=== PATIENT | male | born 1970 | race African-American/Black ===

== ENCOUNTER 2016-12-13 20:29 | Emergency (ER) | payer MEDICAID, MEDICARE ==
[2016-12-13 20:54] VITALS: BP 128/81
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
== END 2016-12-13 21:28 | disposition home or self-care (01) ==
LOC: FB.ED 20:29
DX: S23.41XA Sprain of ribs, initial encounter (principal); V49.9XXA Car occupant (driver) (passenger) injured in unspecified traffic accident, initial encounter
CPT/HCPCS: 71101-RT; 99284

== ENCOUNTER 2018-06-05 07:05 | Emergency (ER) | payer MEDICARE, MEDICAID ==
[2018-06-05 07:27] VITALS: BP 104/59
[2018-06-05] MEDS ORDERED: Ketorolac 60 MG/2 ML SDV IM ONE (07:29)
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
== END 2018-06-05 08:00 | disposition home or self-care (01) ==
LOC: FB.ED 07:05
DX: M54.5 Low back pain (principal); R20.8 Other disturbances of skin sensation; B20 Human immunodeficiency virus [HIV] disease; Z79.899 Other long term (current) drug therapy; W18.39XA Other fall on same level, initial encounter
CPT/HCPCS: 96372; 99283; J1885

== ENCOUNTER 2020-08-13 14:15 | Emergency (ER) | payer MEDICARE, MEDICAID ==
[2020-08-13] MEDS ORDERED: Azithromycin 500 MG in Sodium Chloride 0.9% 250 ML IV ONE (14:52)
[2020-08-13] MEDS ORDERED: cefTRIAXone 1 GM in Sodium Chloride 0.9% 50 ML IV ONE (14:52)
[2020-08-13] MEDS ORDERED: Sodium Chloride 0.9% 1,000 ML IV SCH (15:00)
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
[2020-08-13] MEDS ORDERED: Ketorolac 30 MG/ML SDV IVPUSH ONE (16:56)
[2020-08-13 19:09] VITALS: BP 120/74; PULSE 68
--- NOTE | 2020-08-13 21:25 | CR ---
CHEST TWO VIEWS INDICATION: Cough, chest wall pain. Negative Covid. PA and lateral views of the chest were obtained 08/13/2020 and compared with 12/13/2016. The chest is rotated to the right. The heart did not appear enlarged. Mediastinum was essentially unremarkable. A definite active infiltrate or effusion was not identified. The aorta is minimally tortuous. IMPRESSION: No acute process. MTDD
== END 2020-08-13 17:55 | disposition home or self-care (01) ==
LOC: FB.ED 14:15
DX: S23.41XA Sprain of ribs, initial encounter (principal); J40 Bronchitis, not specified as acute or chronic; Z79.899 Other long term (current) drug therapy; Z20.828 Contact with and (suspected) exposure to other viral communicable diseases; X58.XXXA Exposure to other specified factors, initial encounter
CPT/HCPCS: 36415; 71046; 80048; 85025; 86140; 96365; 96367; 96375; 99285; J0456; J0696; J1885; J7030; J7050; U0002; 99284

== ENCOUNTER 2021-01-14 09:19 | Emergency (ER) | payer MEDICARE, MEDICAID ==
--- NOTE | 2021-01-14 09:48 | EDM.PDOC ---
ED HPI GENERAL MEDICAL PROBLEM - General Stated Complaint: PAIN Time Seen by Provider: 01/14/21 09:20 Source of Information: Reports: Patient History Limitations: Reports: Language Barrier - History of Present Illness INITIAL COMMENTS - FREE TEXT/NARRATIVE: c/o R hip pain no Armenian, male roommate translated, roommate came home last night and pt was crawling on floor, said he had pain in his R hip, had fallen PMH: HIV, peripheral neuropathy, alc dependence per chart PCP: [facility] MEDS per clinic records: amitriptyline, megestrol, naproxen, emtricitabine- tenofovir, Prezista, ritonavir, gabapentin VACCINE: Moderna COVID-19 on 12-20-20 quite cachectic, has clubbing of all toes and fingers, has sinus tach, alert, conversant roommate denies alcohol - Related Data Allergies Allergy/AdvReac Type Severity Reaction Status Date / Time No Known Allergies Allergy Verified 01/14/21 09:49 Home Meds: Home Meds Darunavir Ethanolate [Prezista] 06/05/18 [History] Emtricitabine/Tenofovir [Truvada 200 MG-300 MG] 06/05/18 [History] Ritonavir [Norvir] 06/05/18 [History] Azithromycin [Zithromax] 500 mg PO DAILY #5 tab 08/13/20 [Rx] Lidocaine [Lidocaine Pain Relief] 1 each TP Q12HR #10 adh..patch 08/13/20 [Rx] Meloxicam 15 mg PO DAILY #30 tablet 08/13/20 [Rx] guaiFENesin [Mucinex] 600 mg PO BID #30 tab.er.12h 08/13/20 [Rx] Past Medical History - Past Health History Medical/Surgical History: Denies Medical/Surgical History Social & Family History - Family History Family Medical History: Unobtainable - Caffeine Use Caffeine Use: Reports: None ED ROS GENERAL - Review of Systems Review Of Systems: See Below Constitutional: Reports: No Symptoms HEENT: Reports: No Symptoms Respiratory: Reports: No Symptoms Cardiovascular: Reports: No Symptoms Endocrine: Reports: No Symptoms GI/Abdominal: Reports: No Symptoms : Reports: No Symptoms Musculoskeletal: Reports: Other (R hip pain) Skin: Reports: No Symptoms Neurological: Reports: Weakness Psychiatric: Reports: No Symptoms Hematologic/Lymphatic: Reports: No Symptoms Immunologic: Reports: No Symptoms ED EXAM, GENERAL - Physical Exam Exam: See Below Exam Limited By: Language Barrier General Appearance: Alert, Other (emaciated, c/o pain with palpation R hip but good eye contact, nontoxic) Ears: Hearing Grossly Normal Nose: Normal Inspection Throat/Mouth: Normal Voice, No Airway Compromise Head: Atraumatic, Normocephalic Neck: Normal Inspection Respiratory/Chest: No Respiratory Distress, Lungs Clear, Normal Breath Sounds Cardiovascular: Other (tachy, 2/6 NAHUM at LSB, quiet precordium) GI/Abdominal: Soft, Non-Tender, No Distention Back Exam: Normal Inspection Extremities: Other (ext x 4 atrophy, no point tender at ankles with good ROM, no swell) Neurological: Alert, CN II-XII Intact, No Motor/Sensory Deficits Psychiatric: Normal Affect, Normal Mood Skin Exam: Warm, Dry, Intact, Normal Color, No Rash Lymphatic: No Adenopathy #1 Interpretation EKG Interpretation Comments: ST 113, regular, LAD 042, UBALDO, no comparison, no definite ischemia Course - Vital Signs Last Recorded V/S: Last Vital Signs Temp 36.8 C 01/14/21 09:19 Pulse 103 H 01/14/21 09:19 Resp 22 H 01/14/21 09:19 BP 138/92 H 01/14/21 09:19 Pulse Ox 99 01/14/21 09:19 - Orders/Labs/Meds Orders: Active Orders 24 hr Category Date Time Status EKG Documentation Completion [RC] ASDIRECTED Care 01/14/21 09:25 Active CORONAVIRUS COVID-19 ADRIANE [MOLEC] Stat Lab 01/14/21 11:48 Ordered CULTURE BLOOD [BC] Urgent Lab 01/14/21 09:45 Received CULTURE BLOOD [BC] Urgent Lab 01/14/21 09:50 Received UA W/MICROSCOPIC [URIN] Stat Lab 01/14/21 09:23 Ordered Blood Culture x2 Reflex Set [OM.PC] Urgent Oth 01/14/21 09:23 Ordered EKG 12 Lead [EK] Routine Ther 01/14/21 09:23 Ordered Labs: Laboratory Tests 01/14/21 01/14/21 01/14/21 Range/Units 09:45 09:45 09:45 WBC 5.7 (3.2-10.1) x10-3/uL RBC 3.64 L (3.90-5.90) x10(6)uL Hgb 13.0 (12.9-17.7) g/dL Hct 37.5 L (38.3-50.1) % MCV 102.8 H (80.8-98.7) fL MCH 35.8 H (27.0-33.3) pg MCHC 34.8 (28.7-35.3) g/dL RDW 12.5 (12.4-15.0) % Plt Count 203 (117-477) x10(3)uL MPV 7.2 (6.7-11.0) fL Neut % (Auto) 67.2 (40.3-71.8) % Lymph % (Auto) 15.9 (15.8-45.3) % [place] % (Auto) 14.5 (5.5-15.2) % Eos % (Auto) 1.4 (0.1-6.8) % Baso % (Auto) 1.0 (0.3-3.8) % Neut # (Auto) 3.8 (1.7-6.9) x10-3/uL Lymph # (Auto) 0.9 (0.5-4.5) x10-3/uL [place] # (Auto) 0.8 (0.0-1.2) x10-3/uL Eos # (Auto) 0.1 (0.0-0.6) x10-3/uL Baso # (Auto) 0.1 (0.0-0.3) x10-3/uL Sodium 136 (135-145) mmol/L Potassium 3.8 (3.5-5.3) mmol/L Chloride 97 L (100-110) mmol/L Carbon Dioxide 22 (21-32) mmol/L BUN 5 L (7-18) mg/dL Creatinine 0.8 (0.70-1.30) mg/dL Est Cr Clr Drug Dosing 66.58 mL/min Estimated GFR (MDRD) > 60 (>60) BUN/Creatinine Ratio 6.3 L (9-20) Glucose 128 H (80-116) mg/dL Lactic Acid (0.4-2.0) mmol/L Calcium 8.7 (8.6-10.2) mg/dL Magnesium (1.8-2.5) mg/dL Total Bilirubin 0.6 (0.1-1.3) mg/dL AST 60 H D (5-25) IU/L ALT 29 (12-36) U/L Alkaline Phosphatase 168 H (56-112) IU/L Troponin I 4.9 (4.0-60.3) pg/mL C-Reactive Protein 2.0 H (0.5-0.9) mg/dL Total Protein 8.1 H (6.0-8.0) g/dL Albumin 2.7 L (3.5-5.2) g/dL Globulin 5.4 g/dL Albumin/Globulin Ratio 0.5 Ethyl Alcohol 0.05 H (<0.03) % 01/14/21 01/14/21 Range/Units 09:45 09:45 WBC (3.2-10.1) x10-3/uL RBC (3.90-5.90) x10(6)uL Hgb (12.9-17.7) g/dL Hct (38.3-50.1) % MCV (80.8-98.7) fL MCH (27.0-33.3) pg MCHC (28.7-35.3) g/dL RDW (12.4-15.0) % Plt Count (117-477) x10(3)uL MPV (6.7-11.0) fL Neut % (Auto) (40.3-71.8) % Lymph % (Auto) (15.8-45.3) % [place] % (Auto) (5.5-15.2) % Eos % (Auto) (0.1-6.8) % Baso % (Auto) (0.3-3.8) % Neut # (Auto) (1.7-6.9) x10-3/uL Lymph # (Auto) (0.5-4.5) x10-3/uL [place] # (Auto) (0.0-1.2) x10-3/uL Eos # (Auto) (0.0-0.6) x10-3/uL Baso # (Auto) (0.0-0.3) x10-3/uL Sodium (135-145) mmol/L Potassium (3.5-5.3) mmol/L Chloride (100-110) mmol/L Carbon Dioxide (21-32) mmol/L BUN (7-18) mg/dL Creatinine (0.70-1.30) mg/dL Est Cr Clr Drug Dosing mL/min Estimated GFR (MDRD) (>60) BUN/Creatinine Ratio (9-20) Glucose (80-116) mg/dL Lactic Acid 3.0 H* (0.4-2.0) mmol/L Calcium (8.6-10.2) mg/dL Magnesium 1.8 (1.8-2.5) mg/dL Total Bilirubin (0.1-1.3) mg/dL AST (5-25) IU/L ALT (12-36) U/L Alkaline Phosphatase (56-112) IU/L Troponin I (4.0-60.3) pg/mL C-Reactive Protein (0.5-0.9) mg/dL Total Protein (6.0-8.0) g/dL Albumin (3.5-5.2) g/dL Globulin g/dL Albumin/Globulin Ratio Ethyl Alcohol (<0.03) % Meds: Medications Discontinued Medications Generic Name Dose Route Start Last Admin Trade Name Freq PRN Reason Stop Dose Admin Sodium Chloride 1,000 mls @ 999 mls/hr 01/14/21 10:48 01/14/21 10:55 Normal Saline IV 01/14/21 11:48 999 mls/hr .BOLUS ONE Administration - Re-Assessments/Exams Free Text/Narrative Re-Assessment/Exam: 01/14/21 09:33 positive findings: clubbing, language barrier, h/o HIV, ST, UBALDO, cachexia, fall, R hip pain 01/14/21 11:51 pt reports he speaks Luxembourgish XR R hip with fx as per Dr Powell, appears subcapital with extension down the medial aspect CRP 2.0 and unchanged x 5m, c/w HIV, CxR 1v neg on prelim ED read, u/a pending inc'd lactic acid 3.0 c/w poor PO intake x 12h d/t fx alb 2.7, was 3.7 from 2y ago pt agrees to transfer to [place] call placed to [facility] 01/14/21 11:58 d/w Dr Adams who accepted pt in transfer Departure - Departure Time of Disposition: 11:58 Disposition: DC/Tfer to Acute Hospital 02 Condition: Fair Clinical Impression: Subcapital fracture of right hip, Cachexia, Hypoalbuminemia, Elevated lactic acid level, Macrocytosis without anemia, Elevated C-reactive protein (CRP), Elevated alkaline phosphatase level, Elevated total protein, Low BMI - Discharge Information *PRESCRIPTION DRUG MONITORING PROGRAM REVIEWED*: Not Applicable *COPY OF PRESCRIPTION DRUG MONITORING REPORT IN PATIENT LORA: Not Applicable Referrals: Benjamín [facility] MD [Primary Care Provider] - Sepsis Event Note (ED) - Focused Exam Vital Signs: Vital Signs Temp Pulse Resp BP Pulse Ox 01/14/21 09:19 36.8 C 103 H 22 H 138/92 H 99 - My Orders Last 24 Hours: My Active Orders 01/14/21 09:23 UA W/MICROSCOPIC [URIN] Stat Blood Culture x2 Reflex Set [OM.PC] Urgent EKG 12 Lead [EK] Routine 01/14/21 09:25 EKG Documentation Completion [RC] ASDIRECTED 01/14/21 09:45 CULTURE BLOOD [BC] Urgent 01/14/21 09:50 CULTURE BLOOD [BC] Urgent 01/14/21 11:48 CORONAVIRUS COVID-19 ADRIANE [MOLEC] Stat - Assessment/Plan Last 24 Hours: My Active Orders 01/14/21 09:23 UA W/MICROSCOPIC [URIN] Stat Blood Culture x2 Reflex Set [OM.PC] Urgent EKG 12 Lead [EK] Routine 01/14/21 09:25 EKG Documentation Completion [RC] ASDIRECTED 01/14/21 09:45 CULTURE BLOOD [BC] Urgent 01/14/21 09:50 CULTURE BLOOD [BC] Urgent 01/14/21 11:48 CORONAVIRUS COVID-19 ADRIANE [MOLEC] Stat
[2021-01-14 09:57] VITALS: BP 138/92; PULSE 103
[2021-01-14] MEDS ORDERED: Sodium Chloride 0.9% 1,000 ML IV ONE (10:48)
--- NOTE | 2021-01-14 11:40 | CR ---
INDICATION: Weak, fall, history of HIV. CHEST, ONE VIEW: AP portable upright view of the chest was obtained 01/14/21 and compared with 08/13/20 and 12/13/16. The heart, mediastinum, and bony thorax were unremarkable except to note a very minimal dextroconcave scoliosis at the lower thoracic spine. Overlying EKG leads are noted. An active infiltrate or effusion or contusion was not identified. IMPRESSION: No acute process. MTDD
--- NOTE | 2021-01-14 11:46 | CR ---
INDICATION: Fall, pain. RIGHT HIP WITH PELVIS: AP view of the pelvis and right hip and lateral of the right hip were obtained 01/14/21 - no comparisons. The pelvis appears to be intact with sacroiliac joints and left hip joint unremarkable. At the right hip in the proximal right femur, there appears to be an oblique fracture extending from the subcapital area laterally to approximately the portion of the mid femoral neck medially. Compared with the left hip, there is mild narrowing of the superolateral aspect of the right hip joint. However, no significant hypertrophic degenerative changes are noted at either hip joint. Degenerative changes and disc disease are noted L5-S1. IMPRESSION: 1. Apparent partially subcapital femoral neck fracture extending into the femoral neck medially on the right in good position and alignment - hairline fracture. 2. Some loss of cranial lateral joint space is suggested at the right hip joint. 3. Hypertrophic degenerative changes and disc disease noted at L5-S1. Report was called to Dr. Villa at 1130 hours 01/14/21. [facility]
[2021-01-14] MEDS ORDERED: Ondansetron 4 MG/2 ML SDV IVPUSH ONE (14:53)
[2021-01-14] MEDS ORDERED: HYDROmorphone 2 MG/ML SDV IVPUSH ONE (14:53)
== END 2021-01-14 15:10 ==
LOC: FB.ED 09:19
DX: S72.011A Unspecified intracapsular fracture of right femur, initial encounter for closed fracture (principal); R64 Cachexia; E88.09 Other disorders of plasma-protein metabolism, not elsewhere classified; R74.01 Elevation of levels of liver transaminase levels; D75.89 Other specified diseases of blood and blood-forming organs; R79.89 Other specified abnormal findings of blood chemistry; E66.9 Obesity, unspecified; Z68.1 Body mass index [BMI] 19.9 or less, adult; Z20.822 Contact with and (suspected) exposure to COVID-19; W19.XXXA Unspecified fall, initial encounter
CPT/HCPCS: 36415; 71045; 73502; 80053; 80307; 83605; 83735; 84484; 85025; 86140; 87040; 93005; 96374; 96375; 99285; J1170; J2405; J7030; U0002

== ENCOUNTER 2021-01-18 11:04 | Inpatient (IN) | payer MEDICARE, MEDICAID, OTHER ==
[2021-01-18] MEDS: Gabapentin 100 MG Cap PO SCH ×2 (16:32→21:21)
[2021-01-18] MEDS: Megestrol 40 MG Tab PO SCH ×2 (16:32→21:20)
[2021-01-18] MEDS: Calcium Carbonate 500 MG Tablet PO SCH (17:20)
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
[2021-01-18] MEDS: Naproxen 500 MG Tab PO SCH (21:20)
[2021-01-18] MEDS: Amitriptyline 25 MG Tab PO SCH (21:22)
[2021-01-18] MEDS: Acetaminophen 325 MG Tab PO PRN (21:23)
[2021-01-19] MEDS: Cholecalciferol (Vitamin D3) 25 MCG Tab PO SCH (08:26)
[2021-01-19] MEDS: Gabapentin 100 MG Cap PO SCH ×3 (08:26→20:55)
[2021-01-19] MEDS: Calcium Carbonate 500 MG Tablet PO SCH ×2 (08:26→18:33)
[2021-01-19] MEDS: Naproxen 500 MG Tab PO SCH ×2 (08:26→20:54)
[2021-01-19] MEDS: Enoxaparin 40 MG/0.4 ML Syringe SUBCUT SCH (08:26)
[2021-01-19] MEDS: Megestrol 40 MG Tab PO SCH ×4 (08:26→20:54)
[2021-01-19] MEDS: Nicotine 14 MG/24 Hr Patch TRDERM SCH (09:57)
[2021-01-19] MEDS: Amitriptyline 25 MG Tab PO SCH (20:53)
[2021-01-19] MEDS: Acetaminophen 325 MG Tab PO PRN (20:56)
[2021-01-20] MEDS: Calcium Carbonate 500 MG Tablet PO SCH ×2 (08:00→17:36)
[2021-01-20] MEDS: Nicotine 14 MG/24 Hr Patch TRDERM SCH (08:00)
[2021-01-20] MEDS: Megestrol 40 MG Tab PO SCH ×4 (08:01→20:25)
[2021-01-20] MEDS: Enoxaparin 40 MG/0.4 ML Syringe SUBCUT SCH (08:01)
[2021-01-20] MEDS: Naproxen 500 MG Tab PO SCH ×2 (08:01→20:26)
[2021-01-20] MEDS: Gabapentin 100 MG Cap PO SCH ×3 (08:01→20:26)
[2021-01-20] MEDS: Cholecalciferol (Vitamin D3) 25 MCG Tab PO SCH (08:02)
[2021-01-20] MEDS: Amitriptyline 25 MG Tab PO SCH (20:25)
[2021-01-20] MEDS: Acetaminophen 325 MG Tab PO PRN (20:27)
[2021-01-21] MEDS: Calcium Carbonate 500 MG Tablet PO SCH (08:10)
[2021-01-21] MEDS: Naproxen 500 MG Tab PO SCH (08:10)
[2021-01-21] MEDS: Cholecalciferol (Vitamin D3) 25 MCG Tab PO SCH (08:10)
[2021-01-21] MEDS: Megestrol 40 MG Tab PO SCH (08:10)
[2021-01-21] MEDS: Enoxaparin 40 MG/0.4 ML Syringe SUBCUT SCH (08:11)
[2021-01-21] MEDS: Nicotine 14 MG/24 Hr Patch TRDERM SCH (08:15)
[2021-01-21 08:25] VITALS: BP 120/69; PULSE 82
[2021-01-21] MEDS: Gabapentin 100 MG Cap PO SCH (08:31)
--- NOTE | 2021-01-21 09:16 | PCM.PN ---
- General Info Date of Service: 01/21/21 Admission Dx/Problem (Free Text): He should has no complaints. Says his hip does not hurt. - Patient Data Vitals - Most Recent: Last Vital Signs Temp 97.6 F 01/21/21 08:00 Pulse 82 01/21/21 08:00 Resp 14 01/21/21 08:00 BP 120/69 01/21/21 08:00 Pulse Ox 99 01/21/21 08:00 Weight - Most Recent: 91 lb 3.2 oz Med Orders - Current: Current Medications Acetaminophen (Acetaminophen 325 Mg Tab) 650 mg PO Q6H PRN PRN Reason: MILD/MODERATE PAIN Last Admin: 01/20/21 20:27 Dose: 650 mg Documented by: Amitriptyline HCl (Amitriptyline 25 Mg Tab) 25 mg PO BEDTIME [facility] Last Admin: 01/20/21 20:25 Dose: 25 mg Documented by: Calcium Carbonate/Glycine (Calcium Carbonate 500 Mg Tablet) 500 mg PO BIDMEALS [facility] Last Admin: 01/21/21 08:10 Dose: 500 mg Documented by: Cholecalciferol (Cholecalciferol (Vitamin D3) 25 Mcg Tab) 25 mcg PO DAILY [facility] Last Admin: 01/21/21 08:10 Dose: 25 mcg Documented by: Darunavir (Darunavir 600 Mg Tab) 600 mg PO BID [facility] Last Admin: 01/21/21 08:12 Dose: 600 mg Documented by: Emtricitabine/Tenofovir (Emtricitabine/Tenofovir Tab) 1 tab PO DAILY [facility] Last Admin: 01/21/21 08:10 Dose: 1 tab Documented by: Enoxaparin Sodium (Enoxaparin 40 Mg/0.4 Ml Syringe) 40 mg SUBCUT DAILY [facility] Stop: 02/11/21 09:01 Last Admin: 01/21/21 08:11 Dose: 40 mg Documented by: Gabapentin (Gabapentin 100 Mg Cap) 100 mg PO TID [facility] Last Admin: 01/21/21 08:31 Dose: 100 mg Documented by: Megestrol Acetate (Megestrol 40 Mg Tab) 40 mg PO QID [facility] Last Admin: 01/21/21 08:10 Dose: 40 mg Documented by: Naproxen (Naproxen 500 Mg Tab) 500 mg PO BID [facility] Last Admin: 01/21/21 08:10 Dose: 500 mg Documented by: Nicotine (Nicotine 14 Mg/24 Hr Patch) 14 mg TRDERM DAILY [facility] Last Admin: 01/21/21 08:15 Dose: 14 mg Documented by: Ritonavir (Ritonavir 100 Mg Tab) 100 mg PO BID [facility] Last Admin: 01/21/21 08:10 Dose: 100 mg Documented by: - Exam General: Alert, Oriented, Cooperative Skin: Other (Wound right hip has subcuticular sutures. Wound is well approximated without erythema or drainage.) Sepsis Event Note - Evaluation Sepsis Screening Result: No Definite Risk - Focused Exam Vital Signs: Vital Signs Temp Pulse Resp BP Pulse Ox 01/21/21 08:00 97.6 F 82 14 120/69 99 - Problem List & Annotations (1) HIV (human immunodeficiency virus infection) Status: Acute Current Visit: No (2) Subcapital fracture of right hip SNOMED Code(s): 351133047, [id number] Code(s): S72.011A - UNSP INTRACAPSULAR FRACTURE OF RIGHT FEMUR, INIT FOR CLOS FX Status: Acute Current Visit: No Annotation/Comment:: repaired - Problem List Review Problem List Initiated/Reviewed/Updated: Yes - Plan Plan:: 1. OT/PT to assess today.
--- OUTSIDE RECORDS SUMMARY | 2021-01-21 15:04 | XMSREPORT ---
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 [facility] Dietary Supplement Other (Specify in comments) ENSURE ENLIVE 01/14/21 1707 Physical Assessment: Edema: (per assessment rn at 0025 today) ? Generalized Edema None ? RLE Edema Trace GI Assessment: ? Abdominal exam: WDL per assessment rn at 0025 today. ? Stool Frequency: Pt has not had a documented BM since admission Wounds/Pressure Points: WDL (per assessment rn at 0025 today) Functional Status: PT Following OT Following Nutrition Focused Physical Exam: Completed by RD on 01/15/21: Below the Eye (fat): Slightly dark circles, somewhat hollow look (mild-moderate) Sar[place] (muscle): Slight depression (mild-moderate) Buccal (fat): Full, round/filled out cheeks (Within defined limits) Clavicle (muscle): Some protrusion of bone (mild-moderate)(moderate-severe) Shoulder (muscle)/Deltoid muscle: Acromion process slightly protrudes (mild-moderate)(moderate-severe) Triceps/Biceps (fat): Very little space between folds, fingers touch (severe) Hand/Interosseous (muscle): Slightly depressed (mild-moderate)(moderate) Thigh (muscle): Thin, minimal to no muscle definition (severe) Calf (muscle): Thin, minimal to no muscle definition (severe) Nutritionally-Relevant Medications, Vitamins and Minerals: Vitamin B12, HIV antiviral, Lovenox, Folic acid, Megace, Miralax, Senokot-S, Thiamine. Nutritionally-Relevant Biochemical Data: (01/17/2021) Sodium 133 L Creatinine 0.76 L Albumin 3.1 L Allergies/Food Intolerance: Sathya has No Known Allergies. Culturally Methodist Needs: NA INTERVENTIONS Encouraged adequate calories and optimal protein in small, frequent meals and snacks Will send snacks and supplements BID MONITORING/EVALUATION Monitor ability to consume and tolerate adequate intake to approximate estimated needs with accomodation of preferences and tolerances until intake is sustained within desirable limits Monitor I&O, weight trends, nutrition-related labs and medications, clinical status, and planof care r/t need for nutrition intervention and provide as warranted Nutrition Therapy will reassess every 1-4 days Maren Diaz RDN, LRD [facility] Pager #[phone] hysical Therapy - Herrera Amezcua, PT - 01/17/2021 8:29 AM CDT Physical Therapy Acute Orthopedic Treatment Note ASSESSMENT/RECOMMENDATIONS Pt tolerated therapy well. Some improvement with SPT transfer this date with steps taken. Still unable to coordinate use of walker even with multiple demonstrations of use. 6-Clicks Basic Mobility Score: 8 Activity Prescription with Nursing: Assist patient to chair 3 times per day for 30 to 60 minutes or for all meals. Use Ax2 Assist patient to complete exercises 10 times, 3 times per day (in sitting): air boxing, lift arms above head, straighten knees, marching. Encourage patients to do personal cares when sitting up. Use bathroom or commode rather than bedpan. Anticipated D/C Service needs: Low intensity setting Weightbearing: WBAT Ability to adhere to precautions: Good SUBJECTIVE Pt supine in bed and is agreeable to therapy Pain at rest: "Okay" OBJECTIVE Bed Mobility: Mod assist x1 Transfers: Sit to/from stand with Max assist x2 with FWW. Less assist with no use of AD, but still Max assist. Took steps with SPT and AX2 with use of therapists arms for support Gait: Stairs: Therapeutic Exercises: Performed all Hip Fx exercises x 10 with visual and tactile cues for perfomrance Other: Pt left up in chair with chair alarm on and aid in room Education: Pt POC Response to Activity: tolerated well Interdisciplinary Communication: Spoke with interdisciplinary team members regarding patient plan ofcare. PLAN Continue plan of care. 0 Today's treatment: Gait Trainin minutes Therapeutic Exercise: 15 minutes Therapeutic Activity: 44 minutes TOTAL TIMED CODES: 59 minutes TREATMENT TOTAL TIME: 59 minutes Herrera Amezcua PT, DPT [facility] Pg [phone] Addendum: 1250 finished interdisciplinary rounding for pt's fall yesterday. Additional time will be added to represents time spent in care/planning for this pt. Occupational Therapy - Yaritza Bautista, OTR/L - 01/17/2021 8:23 AM CDT Occupational Therapy Acute Care Progress Note Impression/Recommendations Recommend low intensity upon medical stability. Requires heavy assist of 2 for pivot transfer. Presents with decreased strength/endurance and poor activity tolerance. Cognitive assessment limited as [place] is not pt's primary language. OT will continue to follow per POC to maximize functional strength, activity tolerance, cognition, safety, balance, and independence with ADLs, IADLs, transfers and functional mobility needed for optimal quality of life. Objective Cognition: Alert. Cognition assessment limited by language barrier. Therapist provided FWW demonstration however, pt still unable to utilize correctly. Oxygen Level: >90% ADLs: Feeding: Drank from cup with straw/lid independently Grooming: SetupA to brush teeth while seated in chair. Psychical cues for sequencing Dressing: Not observed Toileting: Not observed Transfers: Bed: Mod A x 1 supine to EOB Chair: Max A x 2 sit <> stand with FWW, demonstration provided however, pt unable to functionally utilize FWW. Mod-Max A x 2 with B arm support on 2nd attempt Toilet: Not observed Comment: SPT bed to chair with Mod-Max A x 2 with B arm support Gait belt and non-slip footwear used for safety during OT session. Pt educated on importance of using call light and wait for nursing assistance with OOB/chair activity, patient verbalized understanding. At end of session, pt comfortable in chair and call light, phone and tray table within reach. Chair mata alarm on for safety. PT at bedside. Pain: States pain is "okay" when asked Education Education/Training provided: Role of OT, plan of care, functional transfers Learners: Patient Readiness: Acceptance Method of Training: Verbal education, demonstration Response: Verbalized/demonstrated understanding, will benefit from continued reinfocement Adaptive Equipment Recommendations Anticipate all AE needs will be met at low intensity Goals Patient/Family Stated Goal for Session: none stated Goals to be met by discharge: Patient will complete UB dressing withminimal assistance Patient will complete LB dressing withminimal assistanceand AE prn Patient will complete toileting task withminimal assistanceincluding hygiene and clothing management Patient will complete functional transfers withminimal assistancewith AE PRN (ongoing) Patient will tolerate sitting EOBto complete grooming/hygiene for >5 minutes with AE as needed (ongoing) Patient will demonstrate understanding of B UE HEP in order to increase strength, coordination, and ROM to facilitate maximized independence in ADLs Patient will further participate with cognitive assessment to increase safety with functional tasks Patient continues to progress towards goals. Charges Treatment/Minutes: Today's Evaluation/Treatment Therapeutic activity: 25 minutes Total Treatment Time: 25 minutes Treatment Session 09/11 Weekly Assessment/Plan (): Cont POC Therapist [facility] Pager Number [phone] are Planning - Madisyn Alarcon RN - 01/17/2021 2:25 AM CDT Problem: RISK FOR FALLS Goal: FALL PREVENTION BEHAVIOR Description: DEFINITION: Personal or family health care technician actions to minimize risk factors that might precipitate falls in the personal environment. 1=Never demonstrated, 2=Rarely demonstrated, 3=Sometimes demonstrated, 4=Often demonstrated, 5=Consistently demonstrated. Outcome: NOC Rating 4 Flowsheets (Taken 01/17/2021214) Plan of care reviewed with: Patient Patient specific goal for the day: Pt will utilize call light when needing to ambulate. Patient specific goal for the stay: Pt will have no more falls Achieve goal for stay: By discharge Patient Progress: Pt has not attempted to exit mata bed. Pt does not utilize call light but has call light within reach. Pt was resting in bed comfortability. VSS and CARE rounding completed. Problem: RISK FOR INJURY Goal: SAFE HEALTH CARE ENVIRONMENT Description: DEFINITION: Physical and system arrangements to minimize factors that might cause physical harm or injury in the health care facility. 1 = Not adequate, 2 = Slightly adequate, 3 = Moderately adequate, 4 = Substantially adequate, 5 = Totally adequate. Outcome: NOC Rating 4 Flowsheets (Taken 01/17/2021220) Plan of care reviewed with: Patient Patient specific goal for the day: Pt will tolerate mata bed Patient specific goal for the stay: Pt will be free from restraints. Achieve goal for stay: By discharge Patient Progress: Pt continues mata bed for safety. Pt tolerates mata bed and was laying comfortably in bed upon assessments. are Planning - Madisyn Alarcon RN - 01/17/2021 2:15 AM CDT Problem: ACUTE PAIN Goal: CLIENT SATISFACTION: PAIN MANAGEMENT Description: DEFINITION: Extent of positive perception of nursing care to relieve pain. 1=Not at all satisfied, 2=Somewhat satisfied, 3=Moderately satisfied, 4=Very satisfied, 5=Completely satisfied. Outcome: NOC Rating 4 Flowsheets (Taken 01/17/2021212) Plan of care reviewed with: Patient Patient specific goal for the day: Pt will utilize call light when in pain Patient specific goal for the stay: Pt will return to baseline with pain. Achieve goal for stay: By discharge Patient Progress: Pt stated that he has no pain. Pt was resting in bed. VSS. are Planning - Colleen Ryan RN - 01/16/2021 10:43 PM CDT Problem: ACUTE PAIN Goal: CLIENT SATISFACTION: PAIN MANAGEMENT Description: DEFINITION: Extent of positive perception of nursing care to relieve pain. 1=Not at all satisfied, 2=Somewhat satisfied, 3=Moderately satisfied, 4=Very satisfied, 5=Completely satisfied. Flowsheets (Taken 01/16/20212241) Plan of care reviewed with: Patient Patient specific goal for the day: Patient will report pain on 0-10 pain scale Patient Progress: Pt stating that his pain is much better today and doesn't feel he needs to use pain medications. Will continue to monitor. Problem: IMPAIRED PHYSICAL MOBILITY Goal: MOBILITY Description: DEFINITION: Ability to move purposefully in own environment independently with or without assistive device. 1=Severely compromised / Total assistance: Performs less than 25% of activity; 2=Substantially compromised / Maximal assistance: Performs 25-49% of activity; 3=Moderately compromised / Moderate assistance: Performs 50-74% of activity; 4=Mildly compromised / Modified independence: Needs assistive device, supervision, minimal contact,or safety is a concern; 5=Not compromised / Complete independence. Flowsheets (Taken 01/16/20212243) Plan of care reviewed with: Patient Patient specific goal for the day: Pt will call for assistance before attempting to get out of bed. Patient Progress: Pt has not been using call light apprpriately. Bed alarm set off mulitple times. Frequent rounding. Physician ordered mata bed for safety. Will continue to monitor. Problem: RISK FOR INJURY Goal: SAFE HEALTH CARE ENVIRONMENT Description: DEFINITION: Physical and system arrangements to minimize factors that might cause physical harm or injury in the health care facility. 1 = Not adequate, 2 = Slightly adequate, 3 = Moderately adequate, 4 = Substantially adequate, 5 = Totally adequate. Flowsheets (Taken 01/16/20212243) Plan of care reviewed with: Patient Patient specific goal for the day: Pt will tolerate mata bed Patient Progress: Pt understanding why maat bed was implemented for safety. Will continue to monitor. Supplemental Progress Note - Juancarlos Cavazos MD - 01/16/2021 3:40 PM CDTFace to Face Evaluation Provider Questions Description of patient's current situation/behavior and need for restraint: Pt leaving bed and having mechanical fall. Vitals signs stable? Yes Injuries from intervention? No Review of patient's current medical condition including: patient's history, ROS, labs, substance useand medications completed? Yes Review of patient's behavioral condition completed? Yes Patient's response to restraint intervention? De-escalation Continue restraint or seclusion? Discontinue if pt is no longer attempting to leave bed. linical Team - Arely Hong RN - 01/16/2021 2:01 PM CDTPatient had unwitnessed fall, due to being short staffed and bed availability we went with a mata bed in order to ensure patient safety. Order placed for restraints and mata bed was brought up right away. linical Team - Benjamín Kamara RN - 01/16/2021 1:40 PM CDTPatient Fall Documentation Situation: Fall Fall location/description: 844 in room Brief Description of Event: Patient was found by unknown staff lying on floor. It was obviousthat patient had exited bed and fell to floor. Patient side rails were up on bed, and patient had seizure pads on the bed rails as well. When patient was found, the bed alarm was found to be set in the most sensitive weight move setting, but was not alarming either in the room, or in the nursing station over the call light system. On assessment, patient had no apparent new injuries and denied any pain. Patient was assisted back to bed with multiple staff. The bed alarm was tested, and was found not to be working. Assessment/Vitals: BP: 123/86 Pain/Pain location: None Cognitive Assessment/Changes: Post op hip surgery Injuries, bruises: None apparent Other: N/A Physician Notified: Yes (If yes, answer the following questions) Physician Name: Dr. Cavazos Orders received: no Subsequent Referral(s)/Follow-up: N/A Family Member/Transportation Lead Notified: Yes Name/Relationship: Shimon Zeng Care Planning - Benjamín Kamara RN - 01/16/2021 12:30 PM CDT Problem: IMBALANCED NUTRITION: LESS THAN BODY REQUIREMENTS Goal: NUTRITIONAL STATUS: NUTRIENT INTAKE Description: DEFINITION: Nutrient intake to meet metabolic needs. 1=Not adequate, 2=Slightly adequate, 3=Moderately adequate, 4=Substantially adequate, 5=Totally adequate. Outcome: NOC Rating 3 Flowsheets (Taken 01/16/2021 1222) Initial Score: 1 Target Score: 4 Plan of care reviewed with: Patient Patient specific goal for the day: Pt to consume at least 50% of meals ordered. Patient specific goal for the stay: Pt to meet >75% of estimated nutrition needs. Achieve goal for stay: By discharge Patient Progress: Patient continuing to eat minimally even with cues to eat. Will monitor. Problem: IMPAIRED PHYSICAL MOBILITY Goal: MOBILITY Description: DEFINITION: Ability to move purposefully in own environment independently with or without assistive device. 1=Severely compromised / Total assistance: Performs less than 25% of activity; 2=Substantially compromised / Maximal assistance: Performs 25-49% of activity; 3=Moderately compromised / Moderate assistance: Performs 50-74% of activity; 4=Mildly compromised / Modified independence: Needs assistive device, supervision, minimal contact,or safety is a concern; 5=Not compromised / Complete independence. Outcome: NOC Rating 3 Flowsheets (Taken 01/16/2021 1222) Initial Score: 3 Target Score: 5 Plan of care reviewed with: Patient Patient specific goal for the day: Patient will be able to pivot to commode with assist of two Patient specific goal for the stay: Work with therapies Achieve goal for stay: By discharge Patient Progress: Post op hip fx. Patient up to chair with therapies. Patient up to commode then to bed with assist of two. Problem: RISK FOR FALLS Goal: FALL PREVENTION BEHAVIOR Description: DEFINITION: Personal or family health care technician actions to minimize risk factors that might precipitate falls in the personal environment. 1=Never demonstrated, 2=Rarely demonstrated, 3=Sometimes demonstrated, 4=Often demonstrated, 5=Consistently demonstrated. Outcome: NOC Rating 3 Flowsheets (Taken 01/16/2021 1225) Initial Score: 3 Target Score: 5 Plan of care reviewed with: Patient Patient specific goal for the day: Patient will not attempt to exit the bed or chair without stafff present Patient specific goal for the stay: No falls this hospital stay Achieve goal for stay: By discharge Patient Progress: Patient has not attempted to exit bed this shift. Patient up in chair with therapies, and was found sitting on foot rest. Assisted to commode then back to bed. Goal: MOBILITY Description: DEFINITION: Ability to move purposefully in own environment independently with or without assistive device. 1=Severely compromised, 2=Substantially compromised, 3=Moderately compromised,4=Mildly compromised, 5=Not compromised. Outcome: NOC Rating 3 Flowsheets (Taken 01/16/2021 1225) Initial Score: 3 Target Score: 5 Plan of care reviewed with: Patient Patient specific goal for the day: Patient will work with therapies. Patient specific goal for the stay: Continue to gain stregnth with therapies. Achieve goal for stay: By discharge Patient Progress: Patient working with therapies. Up to chair and to commode this shift. Case Mgmt - Alethea Mayer RN - 01/16/2021 10:26 AM CDTCASE MANAGEMENT / SOCIAL SERVICE TRANSITION PLAN - PROGRESS NOTE PLAN: Awaiting Medical Doctor Recommendations for Transition Will Continue to Follow for Support and Progression Towards Final Transition Plan BARRIERS TO TRANSITION: Medical barriers: Pain control IVF PT/OT DOES ACCEPTING FACILITY REQUIRE COVID TESTING BEFORE DISCHARGE: N/A COMMENTS / PATIENT AND FAMILY RESPONSE TO PLAN: Medicine team rounded on patient, therapies are recommending low intensity therapy post op. CM profiled it area and [facility] area. Will follow with patient on placement options. CM will continue to follow for discharge planning. IS PATIENT'S ADMISSION ASSOCIATED WITH TIA, ISCHEMIC, OR HEMORRHAGIC STROKE?: No PATIENT / SUBSTITUTE DECISION MAKER GOAL UPON TRANSITION: First Choice: Home: Family/Friend Support Outpatient Therapy: Occupational Therapy and Physical Therapy ANTICIPATED NEEDS UPON TRANSITION: [facility] Facility RESOURCE(S) PROVIDED: Placement and Transportation ANTICIPATED MODE OF TRANSPORT UPON TRANSITION: Other: TBD ANTICIPATED MODE OF TRANSPORT TO AND FROM FOLLOW UP APPOINTMENTS: As arranged by accepting facility VERIFIED CORRECT PHARMACY IS ENTERED FOR DISCHARGE: Yes - Pharmacy: [id number] [place] [address] #[phone] TRANSITION ROUNDING COMPLETED WITH THE FOLLOWING: Patient / family Inside Sales Lead Attending MD Residents Bedside RN SIGNED: Alethea Mayer RN, BSN Case Management [facility] (Office) PH: [phone] FAX: [phone] hysical Therapy - Griffin Floyd PT - 01/16/2021 9:08 AM CDT Physical Therapy Orthopedic Evaluation Date: 01/16/2021 Assessment/Recommendations: Patient presents with impaired functional mobility post surgical procedure and will benefit with continued PT. Patient may require post acute inpatient recovery at: [facility]. Family/assistant men's lacrosse coach present for PT session: None (see flowsheet) Referring Physician: Dr. Agee Diagnosis/Surgical Procedure and Date: Right hip nailing 01/15/[address] Gutierrez Significant PMH: Past Medical History: Diagnosis Date Alcohol dependence (HCC) Fracture right arm Fracture of zygomaticomaxillary complex (HCC) HIV (human immunodeficiency virus infection) (HCC) Low back pain 11/18/2012 Syphilis Tobacco use Past Surgical History: Procedure Laterality Date CATARACT EXTRACTION CATARACT W PHACO os dr. kim CATARACT W PHACO od dr. kim FACIAL FX OPEN RED Right 05/12/2013 Procedure: RIGHT ZYGOMA ORBIT & MAXILLARY OPEN REDUCTION INTERNAL FIXATION ;; Surgeon: Cyrus Galicia DDS HIP NAILING Right 01/15/2021 Procedure: RIGHT HIP FNS;; Surgeon: Michele Gutierrez MD Physician Orders: Evaluated and treat, Gait and exercise Weight Bearing Status: WBAT Precautions: Seizure precautions Status Prior to Hospitalization/Surgical Procedure: Current Living Environment: Apartment in [place] Lives: with 2 roommates Stairs to Enter Home: Elevator access Ambulation Status: independent Equipment Owned: walker Patient Goals: Unsure Current Status: Cognition: Alert and Orientated Observation: IV line ROM: Right hip AAROM's: flexion to 70 and abduction to 20 degrees Transfers: Supine to/from Sit: maximal assistance of 2 Sit to/from Stand: maximal assistance of 2 in FWW Balance: Sitting: fair Standing: Poor Gait: Patient was able to take a few small steps in FWW to stand pivot transfer bed to chair with maximal assistance of 2. Exercises: PT assisted the patient to complete 10 repetitions of Right hip post surgical exercises with moderate assistance for active exercises. No isometric exercises, patient having difficulty following directives. Pain Level: (0-10 scale) Comments: Patient reported pain in his legs with activity but did not rate on the 1-10 scale. Patient/Family Education: Reviewed precautions, role of the physical therapist, and discussed anticipated outcome goals. Family present during evaluation: None Treatment: Time Treatment Occurred: 7:58 Evaluation: X Gait: 0 minutes Exercise: 15 minutes Therapeutic Activity: 10 minutes TOTAL TIMED CODES: 25 minutes TREATMENT TOTAL TIME: 49 minutes Assessment: Patient presents with impaired functional mobility post surgical procedure and will benefit with continued PT. Patient may require post acute inpatient recovery at: [facility]. Plan: Follow daily for gait traning, therapeutic exercise, therapeutic activity, and education. Goals: By hospital discharge or within 2-3 days. Patient involved in developing/progressing goals and treatment plan. Supine to sit with minimal assist. Sit to stand with minimal assist. Ambulate 15 feet on level surfaces with minimal assist and appropriate assistive device. Achieve 65 degrees supine hip flexion and 15 degrees hip abduction. Independent or able to instruct caregiver in home exercise program. Appropriate assistive device available for ambulation. Griffin Floyd PT [facility] Pager [phone] Occupational Therapy - Yaritza Bautista, OTR/L - 01/16/2021 8:14 AM CDT Occupational Therapy Acute Care Evaluation Impression/Recommendations Recommend low intensity upon medical stability. Requires heavy assist of 2 for pivot transfer. Presents with decreased strength/endurance and poor activity tolerance. Information gathered limited as [place] is not pt's primary language. OT will continue to follow per POC to maximize functional strength, activity tolerance, cognition, safety, balance, and independence with ADLs, IADLs, transfers and functional mobility needed for optimal quality of life. Admitting Diagnosis: ICD-10-CM 1. Closed fracture of right hip, initial encounter ([facility]) S72.001A vitamin D3, cholecalciferol, 25 mcg (1000 unit) tablet calcium citrate-vitamin D (CITRACAL + VIT D) 315 mg-250 unit tablet Weight bearing status - as tolerated May shower - Leave incision open to air, may get wet if no drainage PHYSICAL THERAPY EVALUATION AND TREATMENT Pharmacist: Review anticoagulation indication and dosing for accuracy History of Present Illness: Refer to H&P for details Past Medical History: Past Medical History: Diagnosis Date Alcohol dependence (HCC) Fracture right arm Fracture of zygomaticomaxillary complex (HCC) HIV (human immunodeficiency virus infection) (HCC) Low back pain 11/18/2012 Syphilis Tobacco use Activity Level: Act as otilio Precautions: WBAT R LE, Seizure, CIWA, Alarms Infection Control: Standard Patient History Social/Home Environment: Difficulty gathering PLOF as pt's [place] is hard to understand at times. Information retrieved from CM initial note. Patient lives: lives with 2 roomates House: apartment Home Environment: Bed/Bath on main: Yes Bath Setup: Unclear Employment: not employed Prior Level of Function Independent with: dressing, bathing, medication management, cleaning, laundry and driving (daytime only) Assistance needed with: cooking Comments: Ambulates with device at baseline. Adaptive Equipment Available: No adaptive equipment needed Present for Eval: Pt, PT Objective Activities of Daily Living: Feeding: Drank from cup with straw/lid independently Grooming: Washed face with wash cloth after setupA Upper Extremity Dressing: After setupA, pt able to thread B arms into hospital gown over backside Lower Extremity Dressing: Not observed Bathing: Not observed Toileting: Total A for clean up after incontinent of urine Homemaking: Not obesrved Transfers: Bed: Max A x 2 supine to EOB Chair: Max A x 2/FWW sit <> stand, does not use FWW functionally Toilet: Not observed Tub/Shower: Not observed Comments: SPT bed to chair with Max A x 2, initiated ~2 steps Gait belt and non-slip footwear used for safety during OT session. Pt educated on importance of using call light and wait for nursing assistance with OOB/chair activity, patient verbalized understanding. At end of session, pt comfortable in chair and call light, phone and tray table within reach. Chair mata alarm on for safety. RN updated. Pain: Comment: Pt reports having pain in B LE's however, does not rate on scale Upper Extremity Function: Range of Motion: Right:within functional limits Left: within functional limits Strength: Right: limited, generalized weakness Left: limited, generalized weakness Endurance: limited Oxygen Level: >90% Coordination/Sensation: not formally assessed, WFL during observation Edema: no Dominant Hand: right Orientation: Cognition: alert, flat affect Attention: intact Following Directions: impaired, likely due to language barrier Safety Awareness: impaired Comments: Difficult to assess cognition due to language barrier. Pulling at lines occasionally. Visual/Perception: Glasses: Yes however, currently broken Comments: Denies acute changes Education Education/Training provided: Role of OT, plan of care, functional transfers Learners: Patient Readiness: Acceptance Method of Training: Verbal education, demonstration Response: Verbalized/demonstrated understanding, will benefit from continued reinforcement Adaptive Equipment Recommendations Adaptive Equipment Recommended: further assess pending discharge plan Plan to obtain adaptive equipment: To further assess. Assessment/Plan Assessment: Patient demonstrates decreased UE strength, decreased physical conditioning, decreased independence with ADL/IADL tasks, decreased independence with functional mobility and decreased safety judgement/insight into deficits Patient showing a decrease in ADL/transfer performance and will benefit from continued OT. Plan: Patient to be seen 3-5 times a week to work toward above goals Treatment plan will consist of Thursday thru Thursday sessions Goals Patient/Family Stated Goal for Session: none stated Goals to be met by discharge: Patient will complete UB dressing with minimal assistance Patient will complete LB dressing with minimal assistance and AE prn Patient will complete toileting task with minimal assistance including hygiene and clothing management Patient will complete functional transfers with minimal assistance with AE PRN Patient will tolerate sitting EOB to complete grooming/hygiene for >5 minutes with AE as needed Patient will demonstrate understanding of B UE HEP in order to increase strength, coordination, and ROM to facilitate maximized independence in ADLs Patient will further participate with cognitive assessment to increase safety with functional tasks Treatment Provided See above for treatment provided Charges Treatment/Minutes: Today's Evaluation/Treatment Evaluation Therapeutic activity: 15 minutes Total for time-based codes: 15 minutes Total treatment time: 25 minutes Evaluation Complexity PMH/Comorbidities that affect Occupational Performance: See PMH Occupational Profile/Medical and Therapy History: LOW - Brief history relating to presenting problem Patient Assessment: LOW - 1-3 performance deficits relating to physical, cognitive, psychosocial limitations/restrictions Clinical Decision Making: LOW - Low complexity, limited amount of treatment options, no assessment modification, no comorbidities Evaluation Complexity: Low Therapist [facility] Pager Number: [phone] are Planning - Patricia Bennett RN - 01/16/2021 5:18 AM CDT Problem: ACUTE PAIN Goal: CLIENT SATISFACTION: PAIN MANAGEMENT Description: DEFINITION: Extent of positive perception of nursing care to relieve pain. 1=Not at all satisfied, 2=Somewhat satisfied, 3=Moderately satisfied, 4=Very satisfied, 5=Completely satisfied. 01/16/2021517 by Patricia Bennett RN Outcome: NOC Rating 3 Flowsheets (Taken 01/16/2021517) Plan of care reviewed with: Patient Patient specific goal for the day: Patient will report pain on 0-10 pain scale Patient specific goal for the stay: Patient will have pain managed with PO meds Achieve goal for stay: By discharge Patient Progress: Adult behavioral scale used by specifications writer this shift. Patient rated 0-3. Patient frequently drowsy this shift. Patient grimaces with repo, but falls alseep quickly after. Problem: IMPAIRED PHYSICAL MOBILITY Goal: MOBILITY Description: DEFINITION: Ability to move purposefully in own environment independently with or without assistive device. 1=Severely compromised / Total assistance: Performs less than 25% of activity; 2=Substantially compromised / Maximal assistance: Performs 25-49% of activity; 3=Moderately compromised / Moderate assistance: Performs 50-74% of activity; 4=Mildly compromised / Modified independence: Needs assistive device, supervision, minimal contact,or safety is a concern; 5=Not compromised / Complete independence. Outcome: NOC Rating 3 Flowsheets (Taken 01/16/2021517) Plan of care reviewed with: Patient Patient specific goal for the day: Patient will be able to pivot to commode with assist of two Patient specific goal for the stay: Work with therapies Achieve goal for stay: By discharge Patient Progress: Patient is a post op hip fx patient. Patient has not bed out of bed this shift. Patient was incontinent therefore has not needed to get out of bed. Repo q 2 hours. Plan to work with therapies this morning. Problem: RISK FOR FALLS Goal: FALL PREVENTION BEHAVIOR Description: DEFINITION: Personal or family health care technician actions to minimize risk factors that might precipitate falls in the personal environment. 1=Never demonstrated, 2=Rarely demonstrated, 3=Sometimes demonstrated, 4=Often demonstrated, 5=Consistently demonstrated. Outcome: NOC Rating 3 Flowsheets (Taken 01/16/2021 0312) Plan of care reviewed with: Patient Patient specific goal for the day: Patient will not attempt to exit the bed without stafff present Patient specific goal for the stay: No falls this hospital stay Achieve goal for stay: By discharge Patient Progress: Patient has not attempted to exit the bed this shift. Patient AOx1. VSS. No falls.Call light within reach. Bed in lowest position. Bed alarm in place. Non-skid socks in place. repo q2 hours. linical Team - Patricia Bennett RN - 01/16/2021 5:10 AM CDTUnable to fully assess patient this shift d/t language line not having an available Dinka speaking in terpreter. Patient was frequently drowsy this shift also. are Planning - Isabel Wilson RN - 01/15/2021 10:48 PM CDT Problem: ACUTE PAIN Goal: CLIENT SATISFACTION: PAIN MANAGEMENT Description: DEFINITION: Extent of positive perception of nursing care to relieve pain. 1=Not at all satisfied, 2=Somewhat satisfied, 3=Moderately satisfied, 4=Very satisfied, 5=Completely satisfied. Flowsheets (Taken 01/15/2021 2888) Initial Score: 3 Target Score: 5 Plan of care reviewed with: Patient Patient specific goal for the day: Patient will have pain control with oral pain meds Patient specific goal for the stay: Patient will have no pain Achieve goal for stay: By discharge Patient Progress: Patient is being rated with adult behavioral his pain is moderate. He has pain meds that seem to be helping Problem: IMPAIRED PHYSICAL MOBILITY Goal: MOBILITY Description: DEFINITION: Ability to move purposefully in own environment independently with or without assistive device. 1=Severely compromised / Total assistance: Performs less than 25% of activity; 2=Substantially compromised / Maximal assistance: Performs 25-49% of activity; 3=Moderately compromised / Moderate assistance: Performs 50-74% of activity; 4=Mildly compromised / Modified independence: Needs assistive device, supervision, minimal contact,or safety is a concern; 5=Not compromised / Complete independence. Flowsheets (Taken 01/15/20212245) Initial Score: 3 Target Score: 5 Plan of care reviewed with: Patient Patient specific goal for the day: Work with therapies Patient specific goal for the stay: Work with therapies Achieve goal for stay: By discharge Patient Progress: Patient is working with therapies starting tomorrow. He has hip fx. Patient has dangled and been up to the commode pivot with 2. Problem: RISK FOR FALLS Goal: FALL PREVENTION BEHAVIOR Description: DEFINITION: Personal or family health care technician actions to minimize risk factors that might precipitate falls in the personal environment. 1=Never demonstrated, 2=Rarely demonstrated, 3=Sometimes demonstrated, 4=Often demonstrated, 5=Consistently demonstrated. Flowsheets (Taken 01/15/20212245) Initial Score: 3 Target Score: 5 Plan of care reviewed with: Patient Patient specific goal for the day: No falls Patient specific goal for the stay: No falls Achieve goal for stay: By discharge Patient Progress: Patient has had no falls. FAll prevention in place. Supplemental Progress Note - Maverick Hodges MD - 01/15/2021 3:05 PM CDT POSTOPERATIVE EXAMINATION Subjective: Patient seen in room. Pain is controlled No other complaints. Denies numbness/tingling or uncontrolled pain Denies fevers/chills, chest pains, or SOB. Objective: VSS Surgical site dressing clean, dry, and intact. Compartments soft, compressible Sensation intact entire limb +EHL/FHL/TA/GS Limb warm and well perfused, capillary refill <2sec. Assessment/Plan: - Postoperative orders placed - Ancef x24hr - WBAT - PT/OT René Hodges MD Orthopaedic Surgery PGY-2 Pager # [phone] espiratory Therapy - Sulma Morris RRT - 01/15/2021 3:03 PM CDTPatient was seen to assess need for Nicotine Replacement Therapy. Patient is a current smoker, states he smokes 10 cigarettes per day. Already has order for 14 mg nicotine patch and lozenges as needed. Patient speaks Dinka, attempted to use language line railroad dining car steward/stewardess but was unsuccessful. The call was not going through, attempted to call [employer] railroad dining car steward/stewardess 6 times. Patient speaks some [place], but I was not able to understand everything he said. Patient did say he wants to quit, encouraged him to quit. ERROL Garduno, SWITCHING OPERATOR Respiratory Care Disease Management [phone] Care Planning - Maren Diaz RD - 01/15/2021 2:42 PM CDT Problem: IMBALANCED NUTRITION: LESS THAN BODY REQUIREMENTS Goal: NUTRITIONAL STATUS: NUTRIENT INTAKE Description: DEFINITION: Nutrient intake to meet metabolic needs. 1=Not adequate, 2=Slightly adequate, 3=Moderately adequate, 4=Substantially adequate, 5=Totally adequate. Flowsheets (Taken 01/15/2021 0647) Initial Score: 1 Target Score: 4 Plan of care reviewed with: Patient Patient specific goal for the day: Pt to consume at least 50% of meals ordered. Patient specific goal for the stay: Pt to meet >75% of estimated nutrition needs. Achieve goal for stay: By discharge Patient Progress: Pt was in OR this am. Diet advanced to regular after. Pt had a meal in front of him during visit, but ate minimally. He appeared quite distracted by his phone. Pt presents with a chronically low BMI and has sites of severe fat and muscle loss. Will begin sending snacks/ONS BID to help promote intake. Pt reports liking strawberry flavor. linical Team - Benjamín Kamara RN - 01/15/2021 12:40 PM CDT DAILY SKIN CHECK BEHIND EARS- WDL ELBOWS- WDL ISCHIUM- WDL COCCYX- WDL HEELS- Dry ANY OTHER AREAS OF NOTABLE CONCERN- Legs dry skin, surgical incision right hip REMOVE ALL MEDICAL DEVICES (if medically safe to do so) AND PERFORM SKIN CHECK BENEATH THOSE AREAS THAT THE DEVICE MAKES CONTACT WITH SKIN, evaluate rotating site/move device- None Skin check completed with: Eliazar RN OR INTERVENTIONS ALREADY IN PLACE: Mepilex to coccyx INTERVENTIONS ADDED TODAY: N/A WOCN consulted? YES/NO/NA: N/A Physical Therapy - Griffin Floyd, PT - 01/15/2021 9:07 AM CDTPT will hold evaluation until after scheduled surgery for R hip fracture. PT will check on patient again 01/16/21. Griffin Floyd PT Alpha Pager [phone] ase Mgmt - Alethea Mayer RN - 01/15/2021 9:04 AM CDTCASE MANAGEMENT / SOCIAL SERVICE TRANSITION PLAN - INITIAL ASSESSMENT TRANSITION PLAN: Awaiting Medical Doctor Recommendations for Transition Will Continue to Follow for Support and Progression Towards Final Transition Plan BARRIERS TO TRANSITION: Medical barriers: Orthopedics following OR, right hip PT/OT IVF COMMENTS / PATIENT AND FAMILY RESPONSE TO PLAN: CM met with patient in room, interpretor language line was in room, Dinka is his primary language, dialect is wrong on line and patient declining it right now. Patient spoke decent [place], CM able tohave conversation with him. Patient lives in an apartment with two roommates, Bhargav and Alex. Elevator in building. Patient has PCP and does not use community services. Patient states he has a walkerat home but no other DME. He can drive from 7am-7pm but not at night due to bad eyes. His roommates do all the cooking and he helps with cleaning. Patient requesting Junaid (friend and retired switching operator) to be his emergency contact and POA while he is hospitalized. Patient states he can find a ride home at discharge CM will continue to follow and evaluate therapy notes for a discharge plan. Patient was updated on possible discharge options at discharge. ADMISSION DX: R) hip fx PATIENT STATUS: Inpatient RELEASE OF INFORMATION: Yes -- verbal for: discharge planning SOURCES OF INFORMATION (See demographics for contact information): Medical Doctor Medical Record Patient CURRENT LIVING SITUATION / LEVEL OF ASSISTANCE: Lives with Roommate COMMUNITY SERVICES: None HEALTHCARE DIRECTIVE: No POWER OF MACHINE CRATER: None States he wants Junaid is friend and Bean Viner as POA FINANCIAL CONCERNS: No Concerns PRIMARY CARE PHYSICIAN: Yes Benjamín Rincon MD : No IS PATIENT'S ADMISSION ASSOCIATED WITH TIA, ISCHEMIC, OR HEMORRHAGIC STROKE?: No LANGUAGE / COMMUNICATION BARRIERS: No PATIENT / SUBSTITUTE DECISION MAKER GOAL UPON TRANSITION: First Choice: Home: Family/Friend Support ANTICIPATED NEEDS, TRANSITION CHOICES OFFERED: Acute Rehab Home: Family/Friend Support Fpc Facility RESOURCE(S) PROVIDED: Placement and Transportation DOES PATIENT HAVE CLOTHING TO WEAR AT DISCHARGE? Yes ANTICIPATED MODE OF TRANSPORT UPON DISCHARGE: Cab / Lyft / Uber Drive self Friend car VERIFIED CORRECT PHARMACY IS ENTERED FOR DISCHARGE: Yes - Pharmacy: [id number] [place] [address] [place] [address] #[phone] [id number] CURRENT READMISSION RISK SCORE Predictive Risk Score Risk of Unplanned Readmission: 8.3 Please refer to readmission risk assessment flowsheet for further details. SIGNED: Alethea Mayer RN, BSN Case Management [facility] (Office) PH: [phone] FAX: [phone] utrition Team - Maren Diaz RD - 01/15/2021 8:59 AM CDT Nutrition Therapy Initial Assessment Referral: BPA with MST score of 2 Hospital Day: 0 days Active Problems: ? Right femoral neck fracture - non displaced ? History of alcohol use PMH: HIV cachexia, syphilis, alcohol dependence, tobacco use. Recommendations: Add Thera-M for daily micronutrient support. Encourage adequate intake of 3 meals and 2 snacks daily to help meet nutrition needs. Offer ONS with intake <50% of if pt refuses meals. Malnutrition Summary Malnutrition Assessment Date: 01/15/21 Severe protein-calorie malnutrition Malnutrition Characteristics in the Context of Chronic Illness (greater than 3 months): Severe Weight Loss: Greater than 5% in 1 month Subcutaneous Fat Loss: Moderate Muscle Loss: Severe Interventions: Monitor oral intake/advance diet as tolerated;Supplement diet with ONS (oral nutrition supplements)/nutrient dense foods;Vitamin/mineral supplementation NUTRITION ASSESSMENT Pt answered phone call and was then looking at his phone during most of visit so history obtained was somewhat limited, in addition to language barrier. Pt speaks some [place], declined using the railroad dining car steward/stewardess. Pt presents with a chronically low BMI for age. Sites of severe muscle and fat loss noted on NFPE. Will begin sending snacks/ONS BID - Pt reports liking strawberry flavor. Anthropometrics: Height: 175.3 cm (5' 9") Admission Weight: Weight: 43.5 kg (95 lb 12.8 oz) as of 01/14/2021 per bed scale Most Recent Weight: Weight: 43.5 kg (95 lb 12.8 oz) (01/14/21 1628) per bed scale Lowest Weight Since Admission: 43.5 kg Weight Change: 0 kg (0 lb) since admission BMI: Body mass index is 14.15 kg/m. IBW: 73 kg %IBW: 60% (based on admit weight) Usual Body Weight: 98-102 lbs per EMR. Unintentional Weight Loss: >5% in 1 month. Pt has a chronically low BMI. Admit weight is down 7 lbs (7%) from last month. Estimated Needs: 2184-8949 kcal/day (35-40 kcal/kg Using: Admission Weight) 65-80 gm protein (1.5-1.8 gm/kg Using: Admission Weight) Fluids per MD Intake Records: Intake Prior to Admit: Pt reported eating poorly due to a decreased appetite upon admission screening. Difficult to get a detailed diet history due to language barrier. B- Cereal, milk, tea L- Ribs, carrots S- Chicken soup, rice Snacks/Nely- ? Pt tells me that some days he does not eat. Current Intake: Pt was in OR this am. Had lunch in front of him during visit, but ate a very minimalamount. Encouraged pt to continue eating, however he seemed quite distracted by his phone. Current Diet: Nutrition (From admission, onward) Start Ordered 01/15/21 1245 ADVANCE DIET TOLERATED ONCE 01/15/21 1241 01/15/21 1245 Diet - Regular Now Question: Standard Diets Answer: Regular 01/15/21 1241 01/15/21 0900 Supplement [facility]; Other (Specify in comments) (ENSURE ENLIVE)BID BID Comments: Give supplement cold with medications twice a day. The supplement is an intervention for identified nutrition risk factors. * Do not give if patient is NPO (unless the orders specify NPO with supplement) or if medication should not be given with food. Question Answer Comment Location [facility] Dietary Supplement Other (Specify in comments) ENSURE ENLIVE 01/14/21 1707 Physical Assessment: Edema: (per assessment rn at 01/14) ? Generalized Edema None ? RLE Edema Trace GI Assessment: ? Abdominal exam: WDL per assessment rn at 01/14. ? Stool Frequency: Pt has not had a documented BM since admission Wounds/Pressure Points: WDL (per assessment rn at 01/14) Functional Status: OT Following Nutrition Focused Physical Exam: Completed by RD on 01/15/21: Below the Eye (fat): Slightly dark circles, somewhat hollow look (mild-moderate) Sarver (muscle): Slight depression (mild-moderate) Buccal (fat): Full, round/filled out cheeks (Within defined limits) Clavicle (muscle): Some protrusion of bone (mild-moderate)(moderate-severe) Shoulder (muscle)/Deltoid muscle: Acromion process slightly protrudes (mild-moderate)(moderate-severe) Triceps/Biceps (fat): Very little space between folds, fingers touch (severe) Hand/Interosseous (muscle): Slightly depressed (mild-moderate)(moderate) Thigh (muscle): Thin, minimal to no muscle definition (severe) Calf (muscle): Thin, minimal to no muscle definition (severe) Nutritionally-Relevant Medications, Vitamins and Minerals: Antibiotics, Vitamin B12, Lovenox, Folic acid, Megace 4x/day, IVF, Thiamine. Nutritionally-Relevant Biochemical Data: (01/15/2021) Sodium 133 L Creatinine 0.76 L Albumin 3.3 L Allergies/Food Intolerance: Sathya has No Known Allergies. Culturally Methodist Needs: NA INTERVENTIONS Encouraged adequate calories and optimal protein in small, frequent meals and snacks Will send snacks and supplements BID Conducted NFPE Obtained diet history Consult acknowledged MONITORING/EVALUATION Monitor ability to consume and tolerate adequate intake to approximate estimated needs with accomodation of preferences and tolerances until intake is sustained within desirable limits Monitor I&O, weight trends, nutrition-related labs and medications, clinical status, and planof care r/t need for nutrition intervention and provide as warranted Nutrition Therapy will reassess every 1-4 days Maren Diaz RDN, LRD [facility] Pager #[phone] Occupational Therapy - Yaritza Bautista OTR/Pablo - 01/15/2021 7:52 AM CDTOT order received and acknowledged. Per chart review, patient waiting for surgical repair of hip. OTwill follow up 01/16 as able/appropriate. ERIC Holm/Pablo Alpha pager [phone] are Planning - Radha Rubi RN - 01/14/2021 11:40 PM CDT Problem: ACUTE PAIN Goal: CLIENT SATISFACTION: PAIN MANAGEMENT Description: DEFINITION: Extent of positive perception of nursing care to relieve pain. 1=Not at all satisfied, 2=Somewhat satisfied, 3=Moderately satisfied, 4=Very satisfied, 5=Completely satisfied. Flowsheets (Taken 01/14/2021 1189) Initial Score: 2 Target Score: 4 Plan of care reviewed with: Patient Patient specific goal for the day: To have pain well controlled Patient specific goal for the stay: To have pain well controlled Achieve goal for stay: By discharge Patient Progress: Pt restless in bed, states he is 'in much pain' to right hip. PRN oxycodone given x1, PRN morphine given slightly before shift change. Since administration of PRNs, pt resting comfortably in bed. States he is not in pain. Will continue to assess for pain and intervene as necessary. are Planning - Kimber Mari RN - 01/14/2021 5:40 PM CDT Problem: ACUTE PAIN Goal: CLIENT SATISFACTION: PAIN MANAGEMENT Description: DEFINITION: Extent of positive perception of nursing care to relieve pain. 1=Not at all satisfied, 2=Somewhat satisfied, 3=Moderately satisfied, 4=Very satisfied, 5=Completely satisfied. Flowsheets (Taken 01/14/2021 8329) Plan of care reviewed with: Patient Patient specific goal for the day: To have pain well controlled Patient specific goal for the stay: To have pain well controlled Achieve goal for stay: By discharge Patient Progress: Patient complains of severe pain to right hip. Patient received IV pain medication at outside facility prior to transfer. Awaiting orders. linical Team - Kimber Mari RN - 01/14/2021 4:25 PM CDT Upon Admission to [facility] Room 844, skin assessment completed with Kayleigh Summers RN Upon skin assessment including pressure points findings include: Pressure points WDL Plan/Intervention: sacral mepilex applied, turn Q 2, Prevalon boots, daily skin assessment, pressurerelieving mattress documented in this encounter Plan of Treatment Date Type Specialty Care Team Description 01/21/2021 Office Visit Infectious Diseases Rafa, Yesy Crenshaw MD [address] [place] [address] [phone] 02/28/2021 Office Visit Orthopedics Michele Gutierrez MD [address] [place] [address] [phone] 02/28/2021 Office Visit Orthopedics Jolanta Gutierrez [facility] [address] [place] [address] [phone] Name Type Priority Associated Diagnoses Order S chedule COMPLETE BLOOD COUNT WITH Lab Routine Ea rly AM draw for labs DIFFERENTIAL until discontin ued starting 2020, 4 completed BASIC METABOLIC PANEL Lab Routine Early AM draw for labs until discontin ued starting 2020, 4 completed MAGNESIUM Lab Routine Early AM draw f or labs until discontin ued starting 2020, 4 completed PHOSPHORUS Lab Routine Early AM draw f or labs until discontin ued starting 2020, 4 completed HEPATIC FUNCTION PANEL Lab Routine Early AM draw for labs until discontin ued starting 2020, 3 completed Name Type Priority Associated Diagnoses Order S chedule CLINIC REFERRAL Referral Routine Asymptomatic human Ordere d: INFECTIOUS DISEASE ONE immunodeficiency v irus 01/18/2021 CHART (HIV) infection status (HCC) HIV infection, unspecified symptom status ( HCC) Weight loss, unintentional CLINIC REFERRAL Referral Routine Closed fracture of right Ordered: ORTHOPEDICS ONE CHART hip, initial encoun ter 01/18/2021 (HCC) CLINIC REFERRAL BONE Referral Routine Closed fracture of r ight Ordered: HEALTH ONE CHART hip, initial encounter 0 01/18/2021 ([facility]) documented as of this encounter Implants Implanted Type Area Feather Stitcher Device Shelf Model / Identifier Expiration Serial / Date Lot Screw Micro Emma Kls 1.8x5mm N Ea - [id number] ENT/D enta Right: DIA SANDOVAL / Implanted: Qty: 1 on 05/12/2013 by Cyrus Galicia DDS at [facility] l/Plastic ORBIT / s Plate Orb Micro Kls 10hl N Ea - [id number] ENT/Denta Right: DIA SANDOVAL / Implanted: Qty: 1 on 05/12/2013 by Cyrus Galicia DDS at [facility] l/Plastic ORBIT / s Screw Micro Max Df Kls 1.5x5mm N Ea - [id number] ENT /Denta Right: DIA SANDOVAL / Implanted: Qty: 5 on 05/12/2013 by Cyrus Galicia DDS at [facility] l/Plastic ORBIT / s Plate L Kls Lft 5hl N 70-447-70-09 Ea - [id number] ENT/Denta Right: DIA SANDOVAL [id number] / Implanted: Qty: 1 on 05/12/2013 by Cyrus Galicia DDS at [facility] l/Plastic MAXILLA / s Plate Orb Kls N [id number] Ea - [id number] ENT/Denta Right: DIA MCNAMARAIN [id number] / Implanted: Qty: 1 on 05/12/2013 by Cyrus Galicia DDS at [facility] l/Plastic ORBIT / s Screw Micro Max Df Kls 2x5mm N Ea - [id number] ENT/D enta Right: DIA SANDOVAL / Implanted: Qty: 7 on 05/12/2013 by Cyrus Galicia DDS at [facility] l/Plastic MAXILLA / s Description:4- in orbit 3- in maxilla Screw Slftp Stardrster5.0x38mm N 412.213s Ea1 - [id number] O rtho Other Right: HIP J&J DEPUY 06/06/2029 412.213S / Implanted: Qty: 1 on 01/15/2021 by Michele Gutierrez MD at [facility] SYNTHES / [id number] Screw Antirotation Pkeqhpa16sm N 04.168.490s Ea1 - [id number] 1 Ortho Other Right: HIP J&J DEPUY 02/04/2030 04.168.490S / Implanted: Qty: 1 on 01/15/2021 by Michele Gutierrez MD at [facility] SYNTHES / [id number] [place] Fem Neck Ster 90mm N 04.168.290s Ea1 - [id number] Ortho Oth er Right: HIP J&J DEPUY 05/07/2030 04.168.290S / Implanted: Qty: 1 on 01/15/2021 by Michele Gutierrez MD at [facility] SYNTHES / [id number] Plate Fem Neck Sys Ster 1hl N 04.168.000s Ea1 - [id number] O rtho Other Right: HIP J&J DEPUY 05/07/2030 04.168.000S / Implanted: Qty: 1 on 01/16/2021 by Michele Gutierrez MD at [facility] CommScope / [id number] documented as of this encounter Procedures Procedure Name Priority Date/Time Associated Comments Diagnosis LAB ONLY-COMPLETE Routine 01/18/2021 8:48 Result s for this BLOOD COUNT WITH AM CDT procedure a re in DIFFERENTIAL the results section. LAB ONLY-COMPLETE Routine 01/18/2021 8:48 Result s for this BLOOD COUNT WITH AM CDT procedure a re in DIFFERENTIAL the results section. HEPATIC FUNCTION Routine 01/18/2021 8:47 Results for this PANEL AM CDT procedure are i n the results section. PHOSPHORUS Routine 01/18/2021 8:47 Results for this AM CDT procedure are i n the results section. MAGNESIUM Routine 01/18/2021 8:47 Results for this AM CDT procedure are i n the results section. BASIC METABOLIC PANEL Routine 01/18/2021 8:47 Re sults for this AM CDT procedure are i n the results section. COVID-19 SCREEN TO STAT 01/17/2021 2:39 Resul ts for this RULE OUT INFECTIVE PM CDT procedure are in STATUS the results section. LAB ONLY-COMPLETE Routine 01/17/2021 7:08 Result s for this BLOOD COUNT WITH AM CDT procedure a re in DIFFERENTIAL the results section. HEPATIC FUNCTION Routine 01/17/2021 7:08 Results for this PANEL AM CDT procedure are i n the results section. PHOSPHORUS Routine 01/17/2021 7:08 Results for this AM CDT procedure are i n the results section. MAGNESIUM Routine 01/17/2021 7:08 Results for this AM CDT procedure are i n the results section. BASIC METABOLIC PANEL Routine 01/17/2021 7:08 Re sults for this AM CDT procedure are i n the results section. LAB ONLY-COMPLETE Routine 01/17/2021 7:08 Result s for this BLOOD COUNT WITH AM CDT procedure a re in DIFFERENTIAL the results section. LAB ONLY-COMPLETE Routine 01/16/2021 9:13 Result s for this BLOOD COUNT WITH AM CDT procedure a re in DIFFERENTIAL the results section. HEPATIC FUNCTION Routine 01/16/2021 9:13 Results for this PANEL AM CDT procedure are i n the results section. PHOSPHORUS Routine 01/16/2021 9:13 Results for this AM CDT procedure are i n the results section. MAGNESIUM Routine 01/16/2021 9:13 Results for this AM CDT procedure are i n the results section. BASIC METABOLIC PANEL Routine 01/16/2021 9:13 Re sults for this AM CDT procedure are i n the results section. LAB ONLY-COMPLETE Routine 01/16/2021 9:13 Result s for this BLOOD COUNT WITH AM CDT procedure a re in DIFFERENTIAL the results section. XRAY C-ARM Routine 01/15/2021 10:28 Results for this AM CDT procedure are i n the results section. NAILING HIP 01/15/2021 8:58 Closed right hip AM CDT fracture (HCC) LAB ONLY-COMPLETE Routine 01/15/2021 6:34 Result s for this BLOOD COUNT WITH AM CDT procedure a re in DIFFERENTIAL the results section. TYPE AND SCREEN Routine 01/15/2021 6:34 Results for this AM CDT procedure are i n the results section. PROTIME/INR Routine 01/15/2021 6:34 Results for this AM CDT procedure are i n the results section. HEPATIC FUNCTION Routine 01/15/2021 6:34 Results for this PANEL AM CDT procedure are i n the results section. PHOSPHORUS Routine 01/15/2021 6:34 Results for this AM CDT procedure are i n the results section. MAGNESIUM Routine 01/15/2021 6:34 Results for this AM CDT procedure are i n the results section. BASIC METABOLIC PANEL Routine 01/15/2021 6:34 Re sults for this AM CDT procedure are i n the results section. LAB ONLY-COMPLETE Routine 01/15/2021 6:34 Result s for this BLOOD COUNT WITH AM CDT procedure a re in DIFFERENTIAL the results section. XRAY SPINE LUMBAR 2-3 [place]ERT 01/14/2021 8:54 Re sults for this VIEWS PM CDT procedure are i n the results section. XRAY SPINE THORACIC 2 [place] 01/14/2021 8:53 Re sults for this VIEWS PM CDT procedure are i n the results section. CT PELVIS WITHOUT Routine 01/14/2021 8:44 Result s for this CONTRAST PM CDT procedure are i n the results section. COMPLETE BLOOD COUNT ALBERT 01/14/2021 6:33 Res ults for this WITHOUT DIFFERENTIAL PM CDT procedu re are in the results section. PHOSPHORUS Routine 01/14/2021 6:33 Results for this PM CDT procedure are i n the results section. MAGNESIUM ALBERT 01/14/2021 6:33 Results for this PM CDT procedure are i n the results section. BASIC METABOLIC PANEL AL[place]ERT 01/14/2021 6:33 Re sults for this PM CDT procedure are i n the results section. LAB ONLY-ABORH STAT 01/14/2021 6:30 Results f or this PM CDT procedure are i n the results section. documented in this encounter Results LAB ONLY-COMPLETE BLOOD COUNT WITH DIFFERENTIAL (01/18/2021 8:48 AM CDT) Pathologist Sig nature WBC 7.4 4.0 - 11.0 K/uL [address] RBC 3.58 (L) 4.40 - 5.[address] M/uL Hemoglobin 12.4 (L) 13.5 - 17.[address] g/dL Hematocrit 34.7 (L) 40.0 - 50.0 % [address] MCV 96.9 80.0 - 98.[address] MCH 34.6 (H) 25.5 - 34.[address] MCHC 35.7 31.5 - 36.[address] g/dL RDW-CV 10.8 (L) 11.5 - 15.5 % [address] RDW-SD 38.5 35.5 - 50.[address] Platelet Count 187 140 - 400 K/uL [address] MPV 9.6 8.5 - 12.[address] Seg Neut Absolute 4.7 1.8 - 8.0 K/uL [address] Lymphocytes Absolute 1.4 0.8 - 4.1 K/uL [place] [address] [facility] Monocytes Absolute 1.1 (H) 0.0 - 1.0 K/uL [address] Eosinophils Absolute 0.2 0.0 - 0.7 K/uL [place] [address] [facility] Basophil Absolute 0.0 0.0 - 0.2 K/uL [address] Immature Granulocyte 0.05 0.00 - 0.[address] Absolute K/uL Neutrophils Abs. 4,700 /uL [address] (Segs and Bands) Neutrophils Percent 63.8 % [address] Lymphocytes Percent 18.5 % [address] Monocytes Percent 14.7 % [address] Immature Granulocyte 0.7 % [address] Percent Eosinophils Percent 2.0 % [address] Basophil Percent 0.3 % [address] Nucleated RBC 0 /[address] Specimen Blood - Blood specimen (specimen) Performing Organization Address City/State/Zipcode Phone Number [address] [place] [address] HEPATIC FUNCTION PANEL (01/18/2021 8:47 AM CDT) Pathologist Sig nature Alkaline Phosphatase 112 30 - 150 U/L [address] AST - SGOT 40 (H) 0 - 35 U/L [address] ALT - SGPT 19 0 - 55 U/L [address] Bilirubin Total 1.5 (H) 0.2 - 1.2 mg/dL [address] Bilirubin Indirect 0.7 0.0 - 0.8 mg/dL [address] Bilirubin Direct 0.8 (H) 0.0 - 0.4 mg/dL [address] Albumin 3.0 (L) 3.5 - 5.0 g/dL [address] Protein Total 7.5 6.0 - 8.2 g/dL [address] Specimen Blood - Blood specimen (specimen) Performing Organization Address [facility] Phone Number [address] [address] PHOSPHORUS (01/18/2021 8:47 AM CDT) Pathologist Sig nature Phosphorus 2.7 2.5 - 4.5 mg/dL [address] Specimen Blood - Blood specimen (specimen) Performing Organization Address [facility] Phone Number [address] [address] MAGNESIUM (01/18/2021 8:47 AM CDT) Pathologist Sig nature Magnesium 2.0 1.8 - 2.4 mg/dL [address] Specimen Blood - Blood specimen (specimen) Performing Organization Address [facility] Phone Number [address] [address] BASIC METABOLIC PANEL (01/18/2021 8:47 AM CDT) Pathologist Sig nature Glucose 84 70 - 100 mg/dL [address] BUN 17 6 - 22 mg/dL [address] Creatinine 0.71 (L) 0.80 - 1.[address] mg/dL BUN/Creatinine Ratio 23.9 10.0 - 25.[address] Sodium 133 (L) 135 - 145 meq/L [address] Potassium 4.2 3.5 - 5.3 meq/L [address] Chloride 102 99 - 110 meq/L [address] CO2 23 20 - 29 meq/L [address] Anion Gap with K 12 6 - 20 meq/L [address] Calcium 9.4 8.5 - 10.[address] mg/dL Age [address] eGFR Non- >90 >=[address] [place] mL/min/1.73m2 eGFR >90 >=[address] mL/min/1.73m2 Specimen Blood - Blood specimen (specimen) Performing Organization Address City/State/Zipcode Phone Number [address] [place] [address] COVID-19 SCREEN TO RULE OUT INFECTIVE STATUS (01/17/2021 2:39 PM CDT) SARS CoV RNA, RT Not Detected Not Detected [facility]ORAT[facility] Specimen Respiratory - Nasopharyngeal swab (speci men) Narrative Performed At Your Covid-19 test is negative: [facility] 1)Avoiding close contact is still recommended. 2)Cover your coughs and snee zes. 3)Wash your hands often with soap and water for at least 20 seconds or use an alcohol-based billing specialist containing over 60% alcohol. Avoid touching your face. 4)Avoid sharing personal household items, including dishes, cups, utensils, towels, clothing, or bedding. These items should be cleaned thoroughly with soap and water after use. Clean all "high touch" surfaces in your home daily. 5) Monitor your symptoms. Contact your provider if you are feeling worse. If you have shortness of breath or difficulty breathing, call 911. This test was performed by polymerase chain reaction (PCR) on the [employer] instrument. This assay is for in vitro diagnostic use under FDA Emergency Use Authorization only. Optimal performance of this test requires appropriate specimen collection, storage, and transport to the test site. Detection of SARS-CoV-2 RNA may be affected by sample collection methods, patient factors (eg, presence of symptoms), and/or stage of infection. False-negative results may arise from degradation of viral RNA during shipping/storage. Results should be interpreted by a trained professional in conjunction with the pat ient s history and clinical signs and symptoms, and epidemiological risk factors. Negative (Not Detected) results do not preclude infection with the SARS-CoV-2 virus and should not be the sole basis of patient treatment/management or public health decision. Follow up testing should be performed according to the current CDC recommendations. Performing Organization Address City/State/Zipcode Phone Number JUN MILLER [address] [place] [address] [phone] LABORATORY [address] LAB ONLY-COMPLETE BLOOD COUNT WITH DIFFERENTIAL (01/17/2021 7:08 AM CDT) [facility] WBC 9.6 4.0 - 11.0 K/uL [address] RBC 3.65 (L) 4.40 - 5.[address] M/uL Hemoglobin 12.7 (L) 13.5 - 17.[address] g/dL Hematocrit 35.5 (L) 40.0 - 50.0 % [address] MCV 97.3 80.0 - 98.[address] MCH 34.8 (H) 25.5 - 34.[address] MCHC 35.8 31.5 - 36.[address] g/dL RDW-CV 10.8 (L) 11.5 - 15.5 % [address] RDW-SD 38.8 35.5 - 50.[address] Platelet Count 163 140 - 400 K/uL [address] MPV 9.2 8.5 - 12.[address] Seg Neut Absolute 7.4 1.8 - 8.0 K/uL [address] Lymphocytes Absolute 1.0 0.8 - 4.1 K/uL [place] [address] [facility] Monocytes Absolute 1.1 (H) 0.0 - 1.0 K/uL [address] Eosinophils Absolute 0.0 0.0 - 0.7 K/uL [place] [address] [facility] Basophil Absolute 0.0 0.0 - 0.2 K/uL [address] Immature Granulocyte 0.07 (H) 0.00 - 0.06 [place] [address] CLIN[facility] Absolute K/uL Neutrophils Abs. 7,400 /uL [address] (Segs and Bands) Neutrophils Percent 77.5 % [address] Lymphocytes Percent 9.9 % [address] Monocytes Percent 11.5 % [address] Immature Granulocyte 0.7 % [address] Percent Eosinophils Percent 0.3 % [address] Basophil Percent 0.1 % [address] Nucleated RBC 0 /[address] Specimen Blood - Blood specimen (specimen) Performing Organization Address [facility] Phone Number [address] [address] HEPATIC FUNCTION PANEL (01/17/2021 7:08 AM CDT) Pathologist Sig nature Alkaline Phosphatase 116 30 - 150 U/L [address] AST - SGOT 46 (H) 0 - 35 U/L [address] ALT - SGPT 17 0 - 55 U/L [address] Bilirubin Total 1.5 (H) 0.2 - 1.2 mg/dL [address] Bilirubin Indirect 0.5 0.0 - 0.8 mg/dL [address] Bilirubin Direct 1.0 (H) 0.0 - 0.4 mg/dL [address] Albumin 3.1 (L) 3.5 - 5.0 g/dL [address] Protein Total 7.5 6.0 - 8.2 g/dL [address] Specimen Blood - Blood specimen (specimen) Performing Organization Address [facility] Phone Number [address] [address] PHOSPHORUS (01/17/2021 7:08 AM CDT) Pathologist Sig nature Phosphorus 2.9 2.5 - 4.5 mg/dL [address] Specimen Blood - Blood specimen (specimen) Performing Organization Address [facility] Phone Number [address] [address] MAGNESIUM (01/17/2021 7:08 AM CDT) Pathologist Sig nature Magnesium 2.1 1.8 - 2.4 mg/dL [address] Specimen Blood - Blood specimen (specimen) Performing Organization Address [facility] Phone Number [address] [address] BASIC METABOLIC PANEL (01/17/2021 7:08 AM CDT) Pathologist Sig [facility] Glucose 91 70 - 100 mg/dL [address] BUN 15 6 - 22 mg/dL [address] Creatinine 0.76 (L) 0.80 - 1.[address] mg/dL BUN/Creatinine Ratio 19.7 10.0 - 25.[address] Sodium 133 (L) 135 - 145 meq/L [address] Potassium 4.3 3.5 - 5.3 meq/L [address] Chloride 101 99 - 110 meq/L [address] CO2 24 20 - 29 meq/L [address] Anion Gap with K 12 6 - 20 meq/L [address] Calcium 9.2 8.5 - 10.[address] mg/dL Age [address] eGFR Non- >90 >=[address] [facility] [place] mL/min/1.73m2 eGFR >90 >=[address] mL/min/1.73m2 Specimen Blood - Blood specimen (specimen) Performing Organization Address City/State/Zipcode Phone Number [address] [place] [address] LAB ONLY-COMPLETE BLOOD COUNT WITH DIFFERENTIAL (01/16/2021 9:13 AM CDT) Pathologist Sig [facility] WBC 11.1 (H) 4.0 - 11.0 K/uL [address] RBC 3.66 (L) 4.40 - 5.[address] M/uL Hemoglobin 12.7 (L) 13.5 - 17.[address] g/dL Hematocrit 35.7 (L) 40.0 - 50.0 % [address] MCV 97.5 80.0 - 98.[address] MCH 34.7 (H) 25.5 - 34.[address] MCHC 35.6 31.5 - 36.[address] g/dL RDW-CV 10.7 (L) 11.5 - 15.5 % [address] RDW-SD 38.5 35.5 - 50.[address] Platelet Count 156 140 - 400 K/uL [address] MPV 9.5 8.5 - 12.[address] Seg Neut Absolute 9.1 (H) 1.8 - 8.0 K/uL [address] Lymphocytes Absolute 0.9 0.8 - 4.1 K/uL [place] [address] [facility] Monocytes Absolute 1.0 0.0 - 1.0 K/uL [address] Eosinophils Absolute 0.0 0.0 - 0.7 K/uL [place] [address] [facility] Basophil Absolute 0.0 0.0 - 0.2 K/uL [address] Immature Granulocyte 0.07 (H) 0.00 - 0.[address] Absolute K/uL Neutrophils Abs. 9,100 /uL [address] (Segs and Bands) Neutrophils Percent 82.1 % [address] Lymphocytes Percent 7.8 % [address] Monocytes Percent 9.3 % [address] Immature Granulocyte 0.6 % [address] Percent Eosinophils Percent 0.0 % [address] Basophil Percent 0.2 % [address] Nucleated RBC 0 /[address] Specimen Blood - Blood specimen (specimen) Performing Organization Address City/State/Zipcode Phone Number [address] [place], [place] [address] [place] [address] HEPATIC FUNCTION PANEL (01/16/2021 9:13 AM CDT) Pathologist Sig nature Alkaline Phosphatase 132 30 - 150 U/L [address] AST - SGOT 47 (H) 0 - 35 U/L [address] ALT - SGPT 20 0 - 55 U/L [address] Bilirubin Total 1.1 0.2 - 1.2 mg/dL [address] Bilirubin Indirect 0.3 0.0 - 0.8 mg/dL [address] Bilirubin Direct 0.8 (H) 0.0 - 0.4 mg/dL [address] Albumin 3.2 (L) 3.5 - 5.0 g/dL [address] Protein Total 7.8 6.0 - 8.2 g/dL [address] Specimen Blood - Blood specimen (specimen) Performing Organization Address [facility] Phone Number [address] [place] [phone] PHOSPHORUS (01/16/2021 9:13 AM CDT) Pathologist Sig nature Phosphorus 3.1 2.5 - 4.5 mg/dL [address] Specimen Blood - Blood specimen (specimen) Performing Organization Address [facility] Phone Number [address] [place] [address] MAGNESIUM (01/16/2021 9:13 AM CDT) Pathologist Sig nature Magnesium 2.0 1.8 - 2.4 mg/dL [address] Specimen Blood - Blood specimen (specimen) Performing Organization Address [facility] Phone Number [address] [address] BASIC METABOLIC PANEL (01/16/2021 9:13 AM CDT) Pathologist Sig nature Glucose 103 (H) 70 - 100 mg/dL [address] BUN 10 6 - 22 mg/dL [address] Creatinine 0.78 (L) 0.80 - 1.[address] mg/dL BUN/Creatinine Ratio 12.8 10.0 - 25.[address] Sodium 133 (L) 135 - 145 meq/L [address] Potassium 4.0 3.5 - 5.3 meq/L [address] Chloride 98 (L) 99 - 110 meq/L [address] CO2 26 20 - 29 meq/L [address] Anion Gap with K 13 6 - 20 meq/L [address] Calcium 9.2 8.5 - 10.[address] mg/dL Age [address] eGFR Non- >90 >=[address] [facility] [place] mL/min/1.73m2 eGFR >90 >=[address] mL/min/1.73m2 Specimen Blood - Blood specimen (specimen) Performing Organization Address City/[facility]/Zipcode Phone Number [address] [place] [facility] [place] [address] XRAY C-ARM greater than one hour (01/15/2021 10:28 AM CDT) Specimen Narrative Performed At Fluoroscopic image(s) submitted. Imaging [facility] RADI[facility] assistance provided by Radiology. Performing Organization Address [facility] Phone Number [facility] RAD[facility] [address] [place] [address] LAB ONLY-COMPLETE BLOOD COUNT WITH DIFFERENTIAL (01/15/2021 6:34 AM CDT) Pathologist Sig nature WBC 7.5 4.0 - 11.0 K/uL [address] RBC 3.75 (L) 4.40 - 5.[address] M/uL Hemoglobin 13.1 (L) 13.5 - 17.[address] g/dL Hematocrit 37.1 (L) 40.0 - 50.0 % [address] MCV 98.9 (H) 80.0 - 98.[address] MCH 34.9 (H) 25.5 - 34.[address] MCHC 35.3 31.5 - 36.[address] g/dL RDW-CV 11.2 (L) 11.5 - 15.5 % [address] RDW-SD 40.5 35.5 - 50.[address] Platelet Count 151 140 - 400 K/uL [address] MPV 9.2 8.5 - 12.[address] Seg Neut Absolute 5.0 1.8 - 8.0 K/uL [address] Lymphocytes Absolute 1.2 0.8 - 4.1 K/uL [place] [address] [facility] Monocytes Absolute 1.0 0.0 - 1.0 K/uL [address] Eosinophils Absolute 0.3 0.0 - 0.7 K/uL [place] [address] [facility] Basophil Absolute 0.1 0.0 - 0.2 K/uL [address] Immature Granulocyte 0.04 0.00 - 0.[address] Absolute K/uL Neutrophils Abs. 5,000 /uL [address] (Segs and Bands) Neutrophils Percent 66.3 % [address] Lymphocytes Percent 16.2 % [address] Monocytes Percent 13.0 % [address] Immature Granulocyte 0.5 % [address] Percent Eosinophils Percent 3.3 % [address] Basophil Percent 0.7 % [address] Nucleated RBC 0 /[address] Specimen Blood - Blood specimen (specimen) Performing Organization Address [facility] Phone Number [address] [place] [phone] TYPE AND SCREEN (01/15/2021 6:34 AM CDT) Pathologist Sig nature ABO Type B [address] BLOOD BANK Rh Type Positive [address] Comment: BLOOD BANK Allogenic Red Cells Available 8CD 01/15/21 Antibody Screen Negative [address] BLOOD BANK Expiration Date 01/18/2021 23:[address] BLOOD BANK Specimen Blood - Blood specimen (specimen) Performing Organization Address [facility] Number [address] BLOOD BANK [address] [place] [address] PROTIME/INR (01/15/2021 6:34 AM CDT) Pathologist Sig nature Protime 12.8 12.0 - 14.[address] INR 1.0 (L) 2.0 - 3.[address] Specimen Blood - Blood specimen (specimen) Narrative Performed At Normal INR reference range (patients not on oral antic oagulants) [address] 0.9-1.1. INR Standard Intensity = (2.0 - 3.0) INR Higher Intensity = (2.5 - 3.5) Performing Organization Address [facility] Phone Number [address] [place] [address], [place] [address] PHOSPHORUS (01/15/2021 6:34 AM CDT) Pathologist Sig nature Phosphorus 2.8 2.5 - 4.5 mg/dL [facility] Specimen Blood - Blood specimen (specimen) Performing Organization Address [facility] Phone Number [place] [phone] [facility] [address] [place] [id number] MAGNESIUM (01/15/2021 6:34 AM CDT) Pathologist Sig [facility] Magnesium 2.1 1.8 - 2.4 mg/dL [address] Specimen Blood - Blood specimen (specimen) Performing Organization Address [facility] Phone Number [address] [address] [place] [id number] HEPATIC FUNCTION PANEL (01/15/2021 6:34 AM CDT) Pathologist Sig [facility] Alkaline Phosphatase 157 (H) 30 - 150 U/L [address] AST - SGOT 44 (H) 0 - 35 U/L [address] ALT - SGPT 21 0 - 55 U/L [address] Bilirubin Total 1.2 0.2 - 1.2 mg/dL [address] Bilirubin Indirect 0.4 0.0 - 0.8 mg/dL [address] Bilirubin Direct 0.8 (H) 0.0 - 0.4 mg/dL [address] Albumin 3.3 (L) 3.5 - 5.0 g/dL [address] Protein Total 7.9 6.0 - 8.2 g/dL [address] Specimen Blood - Blood specimen (specimen) Performing Organization Address [facility] Phone Number [address] [address] BASIC METABOLIC PANEL (01/15/2021 6:34 AM CDT) Pathologist Sig nature Glucose 93 70 - 100 mg/dL [address] BUN 6 6 - 22 mg/dL [address] Creatinine 0.76 (L) 0.80 - 1.[address] mg/dL BUN/Creatinine Ratio 7.9 (L) 10.0 - 25.0 [place] [address] [facility] Sodium 133 (L) 135 - 145 meq/L [address] Potassium 3.8 3.5 - 5.3 meq/L [place] [address] [facility] Chloride 99 99 - 110 meq/L [place] [address] [facility] CO2 24 20 - 29 meq/L [address] Anion Gap with K 14 6 - 20 meq/L [address] Calcium 8.5 8.5 - 10.[address] mg/dL Age [address] eGFR Non- >90 >=[address] [facility] [place] mL/min/1.73m2 eGFR >90 >=[address] mL/min/1.73m2 Specimen Blood - Blood specimen (specimen) Performing Organization Address City/State/Zipcode Phone Number [address] [place] [address] XRAY SPINE LUMBAR 2 OR 3V - AP AND LAT SUPINE (01/14/2021 8:54 PM CDT) Specimen Narrative Performed At [facility] Patient Name: SATHYA SANDS Date of : 1970 Procedure: XRAY SPINE LUMBAR 2-3 VIEWS Date of Service: 01/14/2021 EXAM: XRAY SPINE LUMBAR 2-3 VIEWS INDICATION: Male, 50 years year old patient, Pain afte r fall, diffuse pain in T/L spine COMPARISON(S): 03/19/2017 TECHNIQUE: 2 view(s) of the lumbar spi ne were obtained. FINDINGS: There is straightening of normal lumbar lordosis. Th ere is no substantial scoliosis. There is a normal alignment of the vertebrae. No compression deformity. There is emphysematous spond ylosis and loss of disc height most pronounced at L5-S1. The soft tissue structures are unremarka ble. IMPRESSION: No compression deformity. Finalized by: Nuno Vinson MD on 01/15/2021 12:59 AM CDT Patient/Procedure Information: [facility] MRN/NADJA: [id number] Order Number: [id number] Accession Number: [id number] Ordering Provider: MAVERICK HODGES Authorizing Provider: YOLIS OCHOA Procedure Note Interface, Radiantres - 01/15/2021 1:01 AM CDT Patient Name: SATHYA SANDS Date of : 1970 Procedure: XRAY SPINE LUMBAR 2-3 VIEWS Date of Service: 01/14/2021 EXAM: XRAY SPINE LUMBAR 2-3 VIEWS INDICATION: Male, 50 years year old ephraim ent, Pain after fall, diffuse pain in T/L spine COMPARISON(S): 03/19/2017 TECHNIQUE: 2 view(s) of the lumbar spin e were obtained. FINDINGS: There is straightening of normal lumbar lordosis. There is no substantial scoliosis. There is a normal alignment of the vertebrae. No compression deformity. There is emphy sematous spondylosis and loss of disc height most pronounced at L5-S1. The soft tissue structures are unremarka ble. IMPRESSION: No compression deformity. Finalized by: Nuno Vinson MD on 01/15/2021 12:59 AM CDT Patient/Procedure Information: [facility] MRN/NADJA: [id number] Order Number: [id number] Accession Number: [id number] Ordering Provider: MAVERICK HODGES Authorizing Provider: YOLIS OCHOA Performing Organization Address City/State/Zipcode Phone Number [id number] XRAY SPINE THORACIC 2 VIEWS (01/14/2021 8:53 PM CDT) Specimen Narrative Performed At [facility] Patient Name: SATHYA SANDS Date of : 1970 Procedure: XRAY SPINE THORACIC 2 VIEWS Date of Service: 01/14/2021 EXAM: XRAY SPINE THORACIC 2 VIEWS INDICATION: Male, 50 years year old patient, Pain afte r fall, diffuse pain over T/L spine COMPARISON(S): None Available TECHNIQUE: 3 view(s) of the thoracic spi ne were obtained. FINDINGS: Normal kyphosis of the thoracic spine. There is no sub stantial scoliosis. Normal alignment of posterior elements. No compression deformity. No suspicious endplate erosi on. No significant loss of disc height. There is no demonstrated soft tissue abn ormality. IMPRESSION: No olga lidia compression deformity. If pain is severe, con therapy tech CT scan or MRI. Finalized by: Nuno Vinson MD on 01/15/2021 1:00 AM CDT Patient/Procedure Information: [facility] MRN/NADJA: [id number] Order Number: [id number] Accession Number: [id number] Ordering Provider: MAVERICK HODGES Authorizing Provider: YOLIS OCHOA Procedure Note Interface, Radiantres - 01/15/2021 1:02 AM CDT Patient Name: SATHYA SANDSERMA Date of : 1970 Procedure: XRAY SPINE THORACIC 2 VIEWS Date of Service: 01/14/2021 EXAM: XRAY SPINE THORACIC 2 VIEWS INDICATION: Male, 50 years year old ephraim ent, Pain after fall, diffuse pain over T/L spine COMPARISON(S): None Available TECHNIQUE: 3 view(s) of the thoracic spi ne were obtained. FINDINGS: Normal kyphosis of the thoracic spine. T here is no substantial scoliosis. Normal alignment of posterior elements. No compression deformity. No suspicious endplate erosion. No significant loss of disc height. There is no demonstrated soft tissue abn ormality. IMPRESSION: No olga lidia compression deformity. If pain is severe, consider CT scan or MRI. Finalized by: Nuno Vinson MD on 01/15/2021 1:00 AM CDT Patient/Procedure Information: [facility] MRN/NADJA: [id number] Order Number: [id number] Accession Number: [id number] Ordering Provider: MAVERICK HODGES Authorizing Provider: YOLIS OCHOA Performing Organization Address City/State/Zipcode Phone Number [id number] CT PELVIS WITHOUT CONTRAST (01/14/2021 8:44 PM CDT) Specimen Narrative Performed At [facility] Patient Name: SATHYA SANDS Date of : 1970 Procedure: CT PELVIS WITHOUT CONTRAST Date of Service: 01/14/2021 EXAM: CT PELVIS WITHOUT CONTRAST INDICATION: Male, 50 years year old patient, Pelvic fracture, Pelvic trauma, Right femoral neck fracture COMPARISON(S): X-ray hip with pelvis dated 01/14/2021. CT abdomen pelv is dated 05/03/2019. TECHNIQUE: Transaxial images were obtained through t he pelvis without intravenous contrast administration. Oral contrast was not given. Sagittal and coronal images were recon structed. FINDINGS: Bowel: Visualized portions of large and small bowel are unremarkable. Vessels: Bilateral iliac arteries and ve ins are unremarkable. Lymph nodes: No enlarged lymph nodes april ntified. Bladder: The urinary bladder is somewhat distended theresa suring 11.1 cm in height. Pelvic viscera: Normal. No suspicious ma ss. Abdominal/pelvic wall: Normal abdominal wall. Osseous: Slightly comminuted fracture of the right fem oral neck extends from the subcapital region to just above the greater t rochanter. No prominent displacement. Mild impaction. No other fract ure. No prominent arthritic change at either hip joint. Sacral iliac clarisa nts are unremarkable. Bony structures are diffusely osteopenic . Prominent degenerative disc height loss at L5-S1 with endplate i rregularity and moderate spondylosis. Moderate right hip joint effusion with f at fluid level. IMPRESSION PELVIS: 1. Acute fracture of the right femoral neck as described. 2. Moderate effusion at the right hip with fat fluid level. 3. Mildly distended urinary bladder. Finalized by: Sher Peralta on 01/15/2021 12:01 AM CDT Patient/Procedure Information: [facility] MRN/NADJA: [id number] Order Number: [id number] Accession Number: [id number] Ordering Provider: JUANCARLOS CAVAZOS Authorizing Provider: NICOLE AGEE Procedure Note Interface, Radiantres - 01/15/2021 12:04 AM CDT Patient Name: SATHYA SANDS Date of : 1970 Procedure: CT PELVIS WITHOUT CONTRAST Date of Service: 01/14/2021 EXAM: CT PELVIS WITHOUT CONTRAST INDICATION: Male, 50 years year old pat ient, Pelvic fracture, Pelvic trauma, Right femoral neck fracture COMPARISON(S): X-ray hip with pelvis dated 01/14/2021. C T abdomen pelvis dated 05/03/2019. TECHNIQUE: Transaxial images were obtai melanie through the pelvis without intravenous contrast administration. Oral contrast was not given. Sagittal and coronal images were reconstructed. FINDINGS: Bowel: Visualized portions of large and small bowel are unremarkable. Vessels: Bilateral iliac arteries and ve ins are unremarkable. Lymph nodes: No enlarged lymph nodes april ntified. Bladder: The urinary bladder is somewhat distended measuring 11.1 cm in height. Pelvic viscera: Normal. No suspicious ma ss. Abdominal/pelvic wall: Normal abdominal wall. Osseous: Slightly comminuted fracture of the right femoral neck extends from the subcapital region to just above the greater trochanter. No prominent displacement. Mild impaction. No other fracture. No prominent arthritic change at either hip joint. Sa cral iliac joints are unremarkable. Bony structures are diffusely osteopenic. Prominent degenerative disc height loss at L5-S1 with endplate irregularity and moderate spondylosis. Moderate right hip joint effusion with f at fluid level. IMPRESSION PELVIS: 1. Acute fracture of the right femoral neck as described. 2. Moderate effusion at the right hip w ith fat fluid level. 3. Mildly distended urinary bladder. Finalized by: Sher Peralta on 01/15/2021 12:01 AM CDT Patient/Procedure Information: [facility] MRN/NADJA: [id number] Order Number: [id number] Accession Number: [id number] Ordering Provider: JUANCARLOS CAVAZOS Authorizing Provider: NICOLE AGEE Performing Organization Address [facility] Phone Number [id number] PHOSPHORUS (01/14/2021 6:33 PM CDT) Pathologist Sig nature Phosphorus 4.0 2.5 - 4.5 mg/dL [address] Specimen Blood - Blood specimen (specimen) Performing Organization Address [facility] Phone Number [address] [place] [phone] MAGNESIUM (01/14/2021 6:33 PM CDT) Pathologist Sig nature Magnesium 1.7 (L) 1.8 - 2.4 mg/dL [address] Specimen Blood - Blood specimen (specimen) Performing Organization Address [facility] Phone Number [address] [address] BASIC METABOLIC PANEL (01/14/2021 6:33 PM CDT) Pathologist Sig nature Glucose 111 (H) 70 - 100 mg/dL [address] BUN 7 6 - 22 mg/dL [address] Creatinine 0.77 (L) 0.80 - 1.[address] mg/dL BUN/Creatinine Ratio 9.1 (L) 10.0 - 25.[address] Sodium 136 135 - 145 meq/L [place] [address] [facility] Potassium 4.1 3.5 - 5.3 meq/L [address] Chloride 101 99 - 110 meq/L [place] [address] [facility] CO2 27 20 - 29 meq/L [address] Anion Gap with K 12 6 - 20 meq/L [address] Calcium 9.0 8.5 - 10.5 [place] [address] [facility] mg/dL Age [address] eGFR Non- >90 >=[address] [facility] [place] mL/min/1.73m2 eGFR >90 >=[address] mL/min/1.73m2 Specimen Blood - Blood specimen (specimen) Performing Organization Address [facility] Phone Number [address] [place] [phone] COMPLETE BLOOD COUNT WITHOUT DIFFERENTIAL (01/14/2021 6:33 PM CDT) Pathologist Sig nature WBC 5.8 4.0 - 11.0 K/uL [address] RBC 3.73 (L) 4.40 - 5.80 M/uL [address] Hemoglobin 13.1 (L) 13.5 - 17.5 g/dL [address] Hematocrit 37.1 (L) 40.0 - 50.0 % [address] MCV 99.5 (H) 80.0 - 98.[address] MCH 35.1 (H) 25.5 - 34.[address] MCHC 35.3 31.5 - 36.5 g/dL [address] RDW-CV 11.4 (L) 11.5 - 15.5 % [address] RDW-SD 41.7 35.5 - 50.[address] Platelet Count 160 140 - 400 K/uL [address] MPV 9.0 8.5 - 12.[address] Specimen Blood - Blood specimen (specimen) Performing Organization Address [facility] Phone Number [address] [place] [address], [place] [address] LAB ONLY-ABORH (01/14/2021 6:30 PM CDT) Pathologist Sig nature ABO Type B [address] BLOOD BA NK Rh Type Positive [address] BLOOD BA NK Specimen Blood - Blood specimen (specimen) Performing Organization Address [facility] Phone Number [address] BLOOD BANK [address] [place] [address], [place] [address] documented in this encounter Visit Diagnoses Diagnosis Closed fracture of right hip, initial en counter (HCC) - Primary Asymptomatic human immunodeficiency viru s (HIV) infection status (HCC) Asymptomatic human immunodeficiency viru s (HIV) infection status HIV infection, unspecified symptom statu s (HCC) Weight loss, unintentional Loss of weight Femur fracture (HCC) Closed fracture of unspecified part of f emur documented in this encounter Discharge Diagnoses Not on filedocumented in this encounter Administered Medications Medication Order MAR Action Action Date Dose Rate Site acetaminophen (TYLENOL) tablet Given 01/18/2021 5:43 AM CDT 650 mg 650 mg 650 mg, Oral, Every six hours, First dose (after last modification) on Aishwarya 01/17/21 at 1300, Until Discontinued, PACU - Continue Post-Op, Adult patients: Total dose of acetaminophen from all acetaminophen containing products should not exceed 4 grams (4000 mg) per day. Pediatric Patients 0 - 3 months: Maximum of 60 mg/kg/24 hours of acetaminophen. Pediatric Patients older than 3 months: Maximum of 75 mg/kg/24 hours of acetaminophen (Never exceeding 4 grams/day). , Given 01/18/2021 1:30 AM CDT 650 mg Given 01/17/2021 5:44 PM CDT 650 mg bisacodyl (DULCOLAX) suppository 10 mg 10 mg, Rectal, One time a day prn, Starting Thu at 1817, Until Discontinued, constipation, Use SECOND for constipatio n. If patient cannot take oral medications, use first for constipation., calcium carbonate (TUMS) chewable tablet 1,000 mg 1,000 mg, Oral, Every four hours prn, Starting 01/05 at 1817, Until Discontinued, other (Specify), acid reflux, Use FIRST for acid reflux. If ineffective after 60 minutes, may proceed to next cisneros ce option or, if no other options, contact provider., cyanocobalamin (vitamin B-12) (Vitamin Given 01/18/2021 9:18 AM CDT 250 mcg B-12) tablet 250 mcg 250 mcg, Oral, Daily, First dose on Thu01/15/21 at 0900, Until Discontinued, If alert and NOT vomiting, Given 01/17/2021 8:40 AM CDT 250 mcg Given 01/16/2021 7:54 AM CDT 250 mcg cyanocobalamin (VITAMIN B-12) injection solution 250 mcg 250 mcg, Intramuscular, Daily, First dose on Thu at 0900, Until Discontinued, 1 mL, If NOT alert and/or vomiting: Refi ll if injection needed, darunavir (PREZISTA) tablet 600 mg Given 01/18/2021 9:19 AM CDT 600 mg 600 mg, Oral, Two times a day, First dose on Thu01/15/21 at 2100, Until Discontinued, Changed from 800mg daily to 600mg bid while in hospital after discussion with ID., Given 01/17/2021 10:34 PM CDT 600 mg Given 01/17/2021 8:41 AM CDT 600 mg docusate sodium (THEREVAC-SB MINI;ENEMEE Z MINI) 283 MG enema 1 enema 1 enema, Rectal, One time a day prn, Starting 01/14 at 1817, Until Discontinued, constipation, Use THIRD for constipation - if no BM 8 hours after dulcolax suppository. If patient cannot take oral medi cations, use second for constipation., emtricitabine-tenofovir (TRUVADA) 200-300 Given 2020 9:19 AM CDT 1 tablet mg tablet 1 tablet 1 tablet, Oral, Daily, First dose on Thu01/15/21 at 1420, Until Discontinued, Changed from Descovy daily while in the hospital per discussion with ID, Given 01/17/2021 8:41 AM CDT 1 tablet Given 01/16/2021 9:12 AM CDT 1 tablet enoxaparin (LOVENOX) subcutaneous injection Given 01/18/2021 9:19 AM CDT 40 mg solution 40 mg 40 mg, Subcutaneous, Daily, 28 doses, First dose on Thu01/16/21 at 0900, Last dose on Thu02/12/21 at 0900, To avoid the loss of drug when using the 30 mg and 40 mg prefilled syringes, do not expel the air bubble from the syringe before the injection. For ADULT patients: Administration should be alternated between the left and right anterolateral and left and right posterolateral abdominal wall. The whole length of the needle should be introduced into a skin fold held between the thumb and forefinger; the skin fold should be held throughout the injection. To minimize bruising, do not rub the injection site after completion of the injection. For PEDIATRIC patients: Administration should be alternated between appropriate sites for patient age/weight (infants/small children = upper thigh; older children/adolescents = left and right anterolateral and left and right posterolateral abdominal wall). During administration to infants/smaller children sometimes the whole length of the needle is not "introduced" during the injection. Administer injection into a skin fold held between the thumb and forefinger; the skin fold should be held throughout the injection. To minimize bruising, do not rub the injection site after completion of the injection., Given 01/17/2021 8:41 AM CDT 40 mg Given 01/16/2021 7:53 AM CDT 40 mg famotidine (PEPCID) tablet 20 mg 20 mg, Oral, Two times a day prn, Starti ng Thu01/14/21 at 1817, Until Discontinued, other (Specify), acid reflux, Use SECOND for acid reflux if inadequate response to calcium carbonate (Tums) after 60 minute s. If inadequate response to famotidine (Pepcid) in 60 minutes, may proceed to n ext choice option or, if no other options, contact provider., folic acid injection solution 1 mg 1 mg, IV, Daily, First dose on Thu at 0900, Until Discontinued, 0.2 mL, If NOT alert and/or vomiting: Refill if injection needed, folic acid tablet 1 mg Given 01/18/2021 9:18 AM CDT 1 mg 1 mg, Oral, Daily, First dose on Thu01/15/21 at 0900, Until Discontinued, If alert and NOT vomiting, Given 01/17/2021 8:41 AM CDT 1 mg Given 01/16/2021 7:54 AM CDT 1 mg megestrol (MEGACE) tablet 40 mg Given 01/18/2021 9:18 AM CDT 40 mg 40 mg, Oral, Four times a day, First dose on Thu01/14/21 at 2100, Until Discontinued, This medication is a high risk hazardous drug. Wear 2 pairs of chemo gloves for administration. If administering oral liquid or sublingual, also wear a chemo gown and face shield if there is a possibility of splashing. If unable to administer dose intact - contact pharmacy or reference policy for other administration options. Dispose of empty packages in the yellow hazardous container. Dispose of unused or partial packages in the black waste container and label must be marked as containing chemotherapy as outlined by the region. , Given 01/17/2021 8:53 PM CDT 40 mg Given 01/17/2021 5:45 PM CDT 40 mg melatonin tablet 3 mg Given 01/17/2021 9:32 PM CDT 3 mg 3 mg, Oral, Bedtime prn, Starting Thu01/14/21 at 1817, Until Discontinued, other (Specify), insomnia, Use FIRST for insomnia. If inadequate response in 60 minutes, may proceed to next choice option or, if no other options, contact provider., morphine preservative free injection solution Given 7:54 AM CDT 1 mg (conc: 2 mg/mL) 1 mg 1 mg, IV, Every four hours prn, Starting Thu01/14/21 at 1822, Until Discontinued, severe pain, 0.5 mL Given 01/14/2021 6:57 PM CDT 1 mg nalOXone (NARCAN) injection solution (vi al) 0.2 mg 0.2 mg, Injection, Every two minutes prn, Starting Thu01/14/21 at 1815, Until Discontinued, other (Specify), opioid induced respirat ory depression - PARTIAL reversal, 0.5 mL, PARTIAL REVERSAL/RESPI RATORY DEPRESSION If respiratory rate less than 8/minute - call rapid response and administer (un til respiratory rate increases to 10/minute). Give IV (preferred), IM or S UBQ, nalOXone (NARCAN) injection solution (vi al) 0.4 mg 0.4 mg, Injection, Every two minutes prn, Starting Thu01/14/21 at 1815, Until Discontinued, other (Specify), opioid in duced respiratory arrest - FULL reversal, 1 mL, FULL REVERSAL/RESPIRATORY ARREST If patient is not breathing - call CODE BLUE and administer. Give IV (preferred), IM or SUBQ, nicotine (NICODERM) Applied 01/18/2021 9:19 AM CDT 14 mg Arm Right Right 14mg/24hr patch Upper TD 14 mg (1 patch), Transdermal, Daily, First dose on Thu01/14/21 at 1730, Until Discontinued, Administer over 24 Hours Applied 01/17/2021 8:41 AM CDT 14 mg Left Arm Applied 01/16/2021 7:58 AM CDT 14 mg Arm Right Right Upper TD nicotine polacrilex (COMMIT) lozenge 2 m g Given 01/15/2021 7:41 PM CDT 2 mg 2 mg (1 lozenge), Mouth/Throat, Every one hour prn, Starting 01/14/21 at 1630, Until Discontinued, smoking cessation, other (Specify), tobacco cravings, Max dose of 20 lozenges in 24 hours Instruct patient not to chew or swallow and allow to dissolve slowly (~20-30 minutes); minimizing swallowing and occasionally move lozenge from one side of the mouth to the other until completely dissolved. Instruct patient not to eat or drink 15 minutes before using or while lozenge is in mouth., Given 01/15/2021 5:29 PM CDT 2 mg Given 01/15/2021 4:30 PM CDT 2 mg oxyCODONE (OXY-IR) tablet 5 mg Given 01/17/2021 9:32 PM CDT 5 mg 5 mg, Oral, Every six hours prn, Starting Thu01/14/21 at 1822, Until Discontinued, moderate pain Given 01/15/2021 3:32 PM CDT 5 mg Given 01/15/2021 5:20 AM CDT 5 mg polyethylene glycol (MIRALAX) packet 1 Given 01/17/2021 8:41 AM CDT 1 packet packet 1 packet, Oral, Daily, First dose on Thu01/16/21 at 0900, Until Discontinued, Post - Op, Hold if 2 loose stools occur in the last 24 hours. Do NOT give if patient on thickened liquids. Contact provider for alternative if needed., Given 01/16/2021 7:54 AM CDT 1 packet ritonavir (NORVIR) tablet 100 mg Given 01/18/2021 9:19 AM CDT 100 mg 100 mg, Oral, Two times a day, First dose on Thu01/15/21 at 2100, Until Discontinued, Change to 100mg bid from 100mg daily while in the hospital per discussion with ID., Given 01/17/2021 10:34 PM CDT 100 mg Given 01/17/2021 8:41 AM CDT 100 mg senna-docusate sodium Given 01/17/2021 8:53 PM CDT 1 tablet (SENOKOT-S;PERICOLACE) tablet 1 tablet 1 tablet, Oral, Two times a day, First dose on Thu01/15/21 at 2100, Until Discontinued, Post - Op, Hold if 2 loose stools occur in the last 24 hours., Given 01/17/2021 8:40 AM CDT 1 tablet Given 01/16/2021 9:22 PM CDT 1 tablet sodium chloride 0.9% flush (adult) 10 mL Given 01/18/2021 9:19 AM CDT 10 mL 10 mL, IV, Two times a day and prn, First dose on Thu01/14/21 at 2100, Until Discontinued, 10 mL, Flush PIV line as scheduled and as often as necessary before and after meds. Use a push / pause technique when flushing to create turbulence., Given 01/17/2021 8:53 PM CDT 10 mL Given 01/17/2021 8:44 AM CDT 10 mL thiamine (vitamin B-1) tablet 100 mg Given 01/18/2021 9:18 AM CDT 100 mg 100 mg, Oral, Daily, First dose on Thu01/15/21 at 0900, Until Discontinued, If alert and NOT vomiting, Given 01/17/2021 8:41 AM CDT 100 mg Given 01/16/2021 7:54 AM CDT 100 mg thiamine 100 mg in sodium chloride 0.9% 50 mL 100 mg, IV, Daily, First dose on 01/05 at 0900, Until Discontinued, 50 mL, If NOT alert and/or vomiting: Refill if injection needed, thiamine 100 mg/1 mL injection solution 100 mg 100 mg, Intramuscular, Daily, First dose on Thu 1 at 0900, Until Discontinued, 2 mL, If NOT alert and/or vomiting: Refi ll if injection needed, Medication Order MAR Action Action Date Dose Rate Site ceFAZolin (ANCEF) 2000 mg/20 mL Given 01/16/2021 1:10 AM CDT 2, 000 mg sterile water IV syringe 2,000 mg, IV, Every eight hours, 2 doses, First dose on Thu01/15/21 at 1730, Last dose on Thu01/16/21 at 0130, 20 mL, PACU - Continue Post-Op, Administer as IV push over 4 minutes., Given 01/15/2021 4:38 PM CDT 2,000 mg enoxaparin (LOVENOX) subcutaneous injection Given 01/14/2021 8:09 PM CDT 40 mg solution 40 mg 40 mg, Subcutaneous, Bedtime, First dose on Thu01/14/21 at 2100, Until Discontinued, To avoid the loss of drug when using the 30 mg and 40 mg prefilled syringes, do not expel the air bubble from the syringe before the injection. For ADULT patients: Administration should be alternated between the left and right anterolateral and left and right posterolateral abdominal wall. The whole length of the needle should be introduced into a skin fold held between the thumb and forefinger; the skin fold should be held throughout the injection. To minimize bruising, do not rub the injection site after completion of the injection. For PEDIATRIC patients: Administration should be alternated between appropriate sites for patient age/weight (infants/small children = upper thigh; older children/adolescents = left and right anterolateral and left and right posterolateral abdominal wall). During administration to infants/smaller children sometimes the whole length of the needle is not "introduced" during the injection. Administer injection into a skin fold held between the thumb and forefinger; the skin fold should be held throughout the injection. To minimize bruising, do not rub the injection site after completion of the injection., fentaNYL 100 mcg/2 mL preservative free Given 01/15/2021 12:11 P M CDT 50 mcg injection solution 50 mcg 50 mcg, IV, Every five minutes prn, 6 doses, Starting Thu01/15/21 at 1052, Until Thu01/15/21 at 1235, other (Specify), moderate pain scale 4-6 or severe pain above 7 if hydromorphone not ordered (max dose of 300 mcg), 1 mL, PACU, Use only anesthesia's orders for moderate or severe pain while in PACU or recovery care, lactated ringers IV solution Already Infusing 01/15/2021 11:18 AM CDT 75 mL/hr IV, at 75 mL/hr, Continuous, Starting Thu01/15/21 at 1105, Until Thu01/15/21 at 1235, 1,000 mL, PACU, TKO current fluids if patient is going to Day Unit / ARU and tolerating PO fluids without nausea., LORazepam (ATIVAN) 2 mg/mL injection solution Given 4:57 AM CDT 1 mg 1-4 mg 1-4 mg, IV, Every one hour prn, Starting Thu01/14/21 at 1821, Until Thu01/16/21 at 1013, other (Specify), CIWA-Ar score greater than or equal to 8, 2 mL, CIWA-Ar score - total number of points Less than 8: medication not indicated 8-14: LORazepam (ATIVAN) 1 mg 15-20: LORazepam (ATIVAN) 2 mg 21-30: LORazepam (ATIVAN) 3 mg Greater than 30: LORazepam (ATIVAN) 4 mg Do not give for anxiety unrelated to withdrawal. If preference is to further dilute for IV administration: First draw up patient-specific dose, then dilute with EQUAL VOLUME of 0.9% sodium chloride, Given 01/16/2021 1:48 AM CDT 1 mg LORazepam (ATIVAN) tablet 1-4 mg Given 01/15/2021 9:52 PM CDT 1 mg 1-4 mg, Oral, Every one hour prn, Starting Thu01/14/21 at 1821, Until Thu01/16/21 at 1013, other (Specify), CIWA-Ar score greater than or equal to 8, CIWA-Ar score - total number of points Less than 8: medication not indicated 8-14: LORazepam (ATIVAN) 1 mg 15-20: LORazepam (ATIVAN) 2 mg 21-30: LORazepam (ATIVAN) 3 mg Greater than 30: LORazepam (ATIVAN) 4 mg Do not give for anxiety unrelated to withdrawal., Given 01/15/2021 7:12 PM CDT 2 mg Given 01/15/2021 6:10 PM CDT 2 mg magnesium sulfate 2 gm/50 mL IV solution 2 g Given 01/14/2021 8:09 PM CDT 2 g 2 g, IV, Now, 1 dose, Thu01/14/21 at 1930, 50 mL meperidine (DEMEROL) injection solution Given 01/15/2021 11:34 A M CDT 25 mg (conc: 25 mg/mL) 25 mg 25 mg, IV, Every fifteen minutes prn, Starting Thu01/15/21 at 1052, Until Thu01/15/21 at 1235, shivering, 1 mL, PACU, X 4 doses to a maximum of 100 mg., Given 01/15/2021 11:19 AM CDT 25 mg sodium chloride 0.9% IV solution New Bag 01/16/2021 7:48 AM CDT 90 mL/hr IV, at 90 mL/hr, Continuous, Starting 01/14/21 at 1820, Until 01/16/21 at 1108, 1,000 mL New Bag 01/14/2021 6:49 PM CDT 90 mL/hr documented in this encounter
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
== END 2021-01-21 11:00 | disposition home health service (06) | DRG 561 ==
LOC: FB.MS 13:00
PROVIDERS: ADMIT Family Medicine; ATTEND Family Medicine
DX: Z47.1 Aftercare following joint replacement surgery (principal); Z96.641 Presence of right artificial hip joint; Z21 Asymptomatic human immunodeficiency virus [HIV] infection status; G89.29 Other chronic pain; M54.9 Dorsalgia, unspecified; G62.9 Polyneuropathy, unspecified; S72.011D Unspecified intracapsular fracture of right femur, subsequent encounter for closed fracture with routine healing; V49.9XXD Car occupant (driver) (passenger) injured in unspecified traffic accident, subsequent encounter; Z79.899 Other long term (current) drug therapy; Z98.49 Cataract extraction status, unspecified eye; F10.21 Alcohol dependence, in remission
CPT/HCPCS: 97161-GP; 97165-GO; 97530-GO; A9270-GY; J1650